=== PATIENT | female | born 1940 | race Caucasian/White ===

== ENCOUNTER 2017-07-02 08:20 | Inpatient (IN) | payer MEDICARE ==
[2017-07-02] MEDS ORDERED: NORMAL SALINE 1000 ML 1,000 ML IV ONE ×2 (08:29→10:33)
--- NOTE | 2017-07-02 08:49 | ER Document Report ---
ED Neuro Symptoms/Deficit - General Stated Complaint: WEAKNESS Time Seen by Provider: 07/02/17 08:28 Notes: 77-year-old female presents with change in mental status progressively over 1 week much worse in the last 24 hours. Daughter states that she has changed her normal routine over the last week not eating well with poor appetite as well as craving pettit sodas which is unusual for her. She has had progressive weakness to the point her daughter could not get her up and around today. She was having difficulty helping her get to the bathroom as soon as yesterday. EMS noted her blood sugar to be elevated. She has no history of diabetes but basically refuses to go to see any physicians. She is on lisinopril after being told that she did not take something for her blood pressure they would not do her cataract surgery. Patient is confused can give me no significant history. She states that basically "I was fine once and now on not". She cannot delineate further. She denies any pain. - Related Data Allergies/Adverse Reactions: codeine Allergy (Verified 07/02/17 17:30) Home Medications: Current Home Medications Lisinopril [Prinivil 10 mg Tablet] 10 mg PO DAILY 07/02/17 [History] Loratadine [Claritin 10 mg Tablet] 10 mg PO DAILY 07/02/17 [History] Past Medical History - Social History Smoking Status: Never Smoker Frequency of alcohol use: Heavy - "likes her Brinda" according to daughter Drug Abuse: None Family History: Reviewed & Not Pertinent Physical Exam - Notes Notes: GENERAL: VS as per nursing doc. Well-appearing, well-nourished and in no acute distress. HEAD: Atraumatic, normocephalic. EYES: Pupils equal round and reactive to light, extraocular movements intact, sclera anicteric, no conjunctival injection or discharge. ENT: Nares patent, oropharynx clear without exudates. Dry mucous membranes. NECK: Normal range of motion, supple, no carotid bruits. LUNGS: Breath sounds clear to auscultation bilaterally and equal. No wheezes rales or rhonchi. HEART: Normal S1S2. Regular rate and rhythm without murmurs. Equal peripheral pulses. ABDOMEN: Soft, non-tender. No appreciable mass. EXTREMITIES: Normal range of motion. No calf tenderness. Negative Homans. No edema. NEUROLOGICAL: GCS 15, twitching type movements of the right shoulder are noted, Cranial nerves II-XII intact. Normal visual yanez. 4/5 RUE strength, 5/5 RLE strength, 5/5 LUE strength, 5/5 LLE strength. PSYCH: Normal mood, normal affect. SKIN: Warm, Dry, no cyanosis, Cap refill < 2 sec. Course - Re-evaluation Re-evalutation: 07/02/17 11:04 Patient remains confused. Though there is probably a large hyperosmolar component, technically she does meet criteria for DKA. I discussed with Dr. Gutierrez and we will admit the patient to the intensive care unit. - Laboratory Result Diagrams: 07/04/17 05:19 07/05/17 10:10 - Diagnostic Test Radiology reviewed: Image reviewed, Reports reviewed - Chest x-ray: Nonacute CT of head: Chronic microvascular changes - EKG Interpretation by Me EKG shows normal: Sinus rhythm - Rate 103, sinus tachycardia, nonspecific ST abnormalities noted with rounding of the ST segments, QRS of normal duration Critical Care Note - Critical Care Note Total time excluding time spent on procedures (mins): 35 Discharge - Discharge Clinical Impression: DKA (diabetic ketoacidosis) Qualifiers: Diabetes mellitus type: type 2 Condition: Critical Disposition: ADMITTED INPATIENT Admitting Provider: [place] [facility] Admitted: ICU
--- NOTE | 2017-07-02 08:54 | RADIOLOGY REPORT (SQ) ---
EXAM DESCRIPTION: CT HEAD WITHOUT COMPLETED DATE/TIME: 07/02/2017 8:33 am REASON FOR STUDY: BED MP STROKE ALERT PER DR DUARTE COMPARISON: None. TECHNIQUE: Axial images acquired through the brain without intravenous contrast. Images reviewed wi th bone, brain and subdural windows. Images stored on PACS. All CT scanners at this facility use dose modulation, iterative reconstruction, and/or weight based d osing when appropriate to reduce radiation dose to as low as reasonably achievable (ALARA). [facility]: Dose Right [facility]: CareDose [facility]: Dose Right [facility]: Teradose 4D [facility]: [employer] RADIATION DOSE: Up-to-date CT equipment and radiation dose reduction techniques were employed. CTDIv ol: 64.6 mGy. DLP: 1163 mGy-cm. mGy. LIMITATIONS: None. FINDINGS: VENTRICLES: Prominent. CEREBRUM: No masses. No hemorrhage. No midline shift. Areas of low density in the white matter mos t likely due to chronic micro-vascular ischemic change. No evidence for acute infarction. CEREBELLUM: No masses. No hemorrhage. No alteration of density. No evidence for acute infarction. EXTRAAXIAL SPACES: Mild age-related involutional change. No fluid collections. No masses. ORBITS AND GLOBE: No intra- or extraconal masses. Normal contour of globe without masses. CALVARIUM: No fracture. PARANASAL SINUSES: No fluid or mucosal thickening. SOFT TISSUES: No mass or hematoma. OTHER: No other significant finding. IMPRESSION: MILD CHRONIC CHANGES OF ATROPHY AND MICROVASCULAR ISCHEMIA. NO ACUTE PROCESS. COMMENT: Pertinent positive or negative findings of the imaging study reported as a CRITICAL EXAM kunal WOODARD at08:43 on 07/02/2017. Category of Critical Exam: Stroke protocol. TECHNICAL DOCUMENTATION: JOB ID: [id number] Quality ID # [id number]: Final reports with documentation of one or more dose reduction techniques (e.g., Au tomated exposure control, adjustment of the mA and/or kV according to patient size, use of iterative reconstruction technique) 2010 [employer]- All Rights Reserved
--- NOTE | 2017-07-02 08:57 | RADIOLOGY REPORT (SQ) ---
EXAM DESCRIPTION: CHEST SINGLE VIEW COMPLETED DATE/TIME: 07/02/2017 8:34 am REASON FOR STUDY: CVA COMPARISON: None. EXAM PARAMETERS: NUMBER OF VIEWS: One view. TECHNIQUE: Single frontal radiographic view of the chest acquired. RADIATION DOSE: NA LIMITATIONS: None. FINDINGS: LUNGS AND PLEURA: No opacities, masses or pneumothorax. No pleural effusion. MEDIASTINUM AND HILAR STRUCTURES: No masses. Contour normal. HEART AND VASCULAR STRUCTURES: Heart normal in size. Normal vasculature. BONES: No acute findings. HARDWARE: None in the chest. OTHER: No other significant finding. IMPRESSION: NO ACUTE RADIOGRAPHIC FINDING IN THE CHEST. TECHNICAL DOCUMENTATION: JOB ID: [id number]
[2017-07-02 09:23] LABS: ABSOLUTE LYMPHOCYTES (AUTO) 0.7 10^3/uL (0.5-4.7); ABSOLUTE MONOCYTES (AUTO) 0.4 10^3/uL (0.1-1.4); ABSOLUTE NEUT (AUTO) 6.7 10^3/uL (1.7-8.2); BASOPHILS % (AUTO) 0.3 % (0-2); HEMATOCRIT 51.6 % (36.0-47.0); HGB HCT DIFFERENCE -3.6; LYMPHOCYTES % (AUTO) 8.8 % (13-45); MEAN CORPUSCULAR HEMOGLOBIN 35.8 pg (27.0-33.4); MONOCYTES % (AUTO) 5.4 % (3-13); RED BLOOD COUNT 4.46 10^6/uL (3.72-5.28); RED CELL DISTRIBUTION WIDTH 13.5 % (11.5-14.0); SEGMENTED NEUTROPHILS % (AUTO) 85.5 % (42-78); WHITE BLOOD COUNT 7.8 10^3/uL (4.0-10.5)
[2017-07-02 09:30] LABS: PROTHROMBIN TIME 13.8 SEC (11.4-15.4)
[2017-07-02 09:53] LABS: ALANINE AMINOTRANSFERASE 67 U/L (9-52); ALBUMIN 4.3 g/dL (3.5-5.0); ALKALINE PHOSPHATASE 111 U/L (38-126); ASPARTATE AMINO TRANSFERASE 41 U/L (14-36); BILIRUBIN,DIRECT 0.9 mg/dL (0.0-0.4); BILIRUBIN,TOTAL 1.1 mg/dL (0.2-1.3); BLOOD UREA NITROGEN 99 mg/dL (7-20); CALCIUM 9.8 mg/dL (8.4-10.2); CHLORIDE 92 mmol/L (98-107); CREATININE RESULT 2.03 mg/dL (0.52-1.25); POTASSIUM 5.8 mmol/L (3.6-5.0); TOTAL PROTEIN 7.5 g/dL (6.3-8.2)
[2017-07-02 09:56] LABS: PLATELET CLUMPS PRESENT; TOXIC GRANULATION SLIGHT
[2017-07-02 09:58] LABS: ALCOHOL < 10 mg/dL (NONE DETECTED)
[2017-07-02 09:58] LABS: APPEARANCE,URINE CLEAR; BILIRUBIN,URINE NEGATIVE (NEGATIVE); GLUCOSE, URINE >=500 mg/dL (NEGATIVE); KETONES,URINE TRACE mg/dL (NEGATIVE); LEUKOCYTE ESTERASE,URINE NEGATIVE (NEGATIVE); NITRITE,URINE NEGATIVE (NEGATIVE); PROTEIN,URINE NEGATIVE (NEGATIVE); URINE SPECIFIC GRAVITY 1.027; UROBILINOGEN,URINE NEGATIVE mg/dL (<2.0)
[2017-07-02 10:00] LABS: MEAN CORPUSCULAR VOLUME 116 fl (80-97); POIKILOCYTOSIS SLIGHT
[2017-07-02 10:05] LABS: CARBON DIOXIDE 15 mmol/L (22-30); SODIUM 135.1 mmol/L (137-145)
[2017-07-02 10:07] LABS: ANION GAP 28 (5-19)
[2017-07-02] MEDS ORDERED: INSULIN REG, HUMAN 100 UNIT/ML 3 ML VIAL (PYX) IV ONE ×2 (10:10→11:22)
[2017-07-02 10:52] LABS: GLUCOSE 1576 mg/dL (75-110)
[2017-07-02 10:54] LABS: ARTERIAL BLOOD O2 SATURATION 89.9 % (94-98)
[2017-07-02] MEDS ORDERED: NORMAL SALINE 1000 ML 1,000 ML IV PRN (11:33)
[2017-07-02] MEDS ORDERED: ACETAMINOPHEN 325 MG TABLET PO PRN (11:33)
[2017-07-02] MEDS ORDERED: INSULIN REG, HUMAN 100 UNIT/ML 3 ML VIAL (PYX) IV SCH (11:45)
[2017-07-02] MEDS ORDERED: HYDRALAZINE HCL INJ/PF 20 MG/1 ML SDV IV PRN (11:50)
[2017-07-02] MEDS ORDERED: NORMAL SALINE 1000 ML 1,000 ML with POTASSIUM CHLORIDE 20 MEQ, MAGNESIUM SULFATE 8 MEQ,... IV PRN ×5 (11:54)
--- NOTE | 2017-07-02 12:38 | PDOC H&P ---
History of Present Illness Admission Date/PCP: KG HAYES PA-C Patient complains of: Not feeling well. History of Present Illness: DILAN SANTANA is a 77 year old female who presents to hospital due to not feeling well. Pt is a poor historian. ER states that pt's daughter was present at time of ER physicians encounter who stated that pt has been more confused at home. Per documentation pt does not have history of diabetes. Per documentation pt is an alcoholic drink of choice is Brinda. Past Medical History Cardiac Medical History: Reports: Hypertension Psychiatric Medical History: Reports: Other - ETOH Dependency per daughter obtained from ER documentation Social History Information Source: [facility] Smoking Status: Never Smoker Family History Parental Family History Reviewed: No Children Family History Reviewed: NA Sibling(s) Family History Reviewed.: NA - due to patient's mental status Review of Systems ROS unobtainable: Due to mental status Physical Exam Vital Signs: Temp Pulse Resp BP Pulse Ox 984 F H 102 H 27 H 114/61 88 L 07/02/17 10:16 07/02/17 10:16 07/02/17 10:16 07/02/17 10:17 07/02/17 10:16 Intake & Output 07/01/17 07/02/17 07/03/17 06:59 06:59 06:59 Weight 100.2 kg General appearance: PRESENT: other - obese, awake but not able to follow commands, laying in bed. Head exam: PRESENT: atraumatic, normocephalic Eye exam: PRESENT: conjunctiva pink, EOMI. ABSENT: scleral icterus Ear exam: PRESENT: normal external ear exam Mouth exam: PRESENT: moist, tongue midline Neck exam: ABSENT: carotid bruit, JVD, lymphadenopathy, thyromegaly Respiratory exam: PRESENT: clear to auscultation bryant. ABSENT: rales, rhonchi, wheezes Cardiovascular exam: PRESENT: RRR. ABSENT: diastolic murmur, rubs, systolic murmur Pulses: PRESENT: normal dorsalis pedis pul Vascular exam: PRESENT: normal capillary refill GI/Abdominal exam: PRESENT: normal bowel sounds, soft. ABSENT: distended, guarding, mass, organolmegaly, rebound, tenderness Rectal exam: PRESENT: deferred Extremities exam: PRESENT: full ROM. ABSENT: calf tenderness, clubbing, pedal edema Neurological exam: PRESENT: awake, other - Pt oriented to self only. Psychiatric exam: PRESENT: anxious Skin exam: PRESENT: dry, intact, warm. ABSENT: cyanosis, rash Results Laboratory Results: 07/02/17 09:03 07/02/17 09:03 07/02/17 07/02/17 07/02/17 09:03 09:03 09:03 WBC 7.8 RBC 4.46 Hgb 16.0 H Hct 51.6 H MCV 116 H MCH 35.8 H MCHC 31.0 L RDW 13.5 Plt Count 143 L Seg Neutrophils % 85.5 H Lymphocytes % 8.8 L Monocytes % 5.4 Eosinophils % 0.0 Basophils % 0.3 Absolute Neutrophils 6.7 Absolute Lymphocytes 0.7 Absolute Monocytes 0.4 Absolute Eosinophils 0.0 Absolute Basophils 0.0 Carbonic Acid HCO3/H2CO3 Ratio ABG pH ABG pCO2 ABG pO2 ABG HCO3 ABG O2 Saturation ABG Base Excess FiO2 Sodium 135.1 L Potassium 5.8 H Chloride 92 L Carbon Dioxide 15 L Anion Gap 28 H BUN 99 H Creatinine 2.03 H Est GFR ( Amer) 29 L Est GFR (Non-Af Amer) 24 L Glucose 1576 H* Calcium 9.8 Total Bilirubin 1.1 AST 41 H ALT 67 H Alkaline Phosphatase 111 Ammonia < 8.7 L Total Protein 7.5 Albumin 4.3 Urine Color Urine Appearance Urine pH Ur Specific [place] Urine Protein Urine Glucose (UA) Urine Ketones Urine Blood Urine Nitrite Ur Leukocyte Esterase Urine WBC (Auto) Urine RBC (Auto) 07/02/17 07/02/17 09:13 10:40 WBC RBC Hgb Hct MCV MCH MCHC RDW Plt Count Seg Neutrophils % Lymphocytes % Monocytes % Eosinophils % Basophils % Absolute Neutrophils Absolute Lymphocytes Absolute Monocytes Absolute Eosinophils Absolute Basophils Carbonic Acid 1.30 HCO3/H2CO3 Ratio 13:1 ABG pH 7.24 L ABG pCO2 43.1 ABG pO2 66.6 L ABG HCO3 18.1 L ABG O2 Saturation 89.9 L ABG Base Excess -9.0 FiO2 3 LPM Sodium Potassium Chloride Carbon Dioxide Anion Gap BUN Creatinine Est GFR ( Amer) Est GFR (Non-Af Amer) Glucose Calcium Total Bilirubin AST ALT Alkaline Phosphatase Ammonia Total Protein Albumin Urine Color YELLOW Urine Appearance CLEAR Urine pH 5.0 Ur Specific [place] 1.027 Urine Protein NEGATIVE Urine Glucose (UA) >=500 H Urine Ketones TRACE H Urine Blood SMALL H Urine Nitrite NEGATIVE Ur Leukocyte Esterase NEGATIVE Urine WBC (Auto) 1 Urine RBC (Auto) 0 07/02/17 09:03 Troponin I 0.016 Impressions: Head CT 07/02/17 00:00 IMPRESSION: MILD CHRONIC CHANGES OF ATROPHY AND MICROVASCULAR ISCHEMIA. NO ACUTE PROCESS. Chest X-Ray 07/02/17 08:30 IMPRESSION: NO ACUTE RADIOGRAPHIC FINDING IN THE CHEST. Assessment & Plan - Diagnosis (1) Acute metabolic encephalopathy Is this a current diagnosis for this admission?: Yes Plan: Secondary to DKA/Hyperglycemia: Will continue to monitor. Will check TSH and Free T4 (2) Newly diagnosed diabetes Is this a current diagnosis for this admission?: Yes Plan: Will check HbgA1C. Will check Lipid profile. (3) DKA (diabetic ketoacidosis) Qualifiers: Diabetes mellitus type: type 2 Is this a current diagnosis for this admission?: Yes Plan: Will place on Insulin drip. (4) Acidosis due to secondary diabetes Is this a current diagnosis for this admission?: Yes Plan: Will continue IVFs. Will check BMP Q6 hours. (5) Acute renal injury due to hypovolemia Is this a current diagnosis for this admission?: Yes Plan: Will continue IVFs. Pt's baseline renal function unknown. (6) Dehydration Is this a current diagnosis for this admission?: Yes Plan: Will continue IVF. (7) ETOH abuse Is this a current diagnosis for this admission?: Yes Plan: Will write for PRN Ativan. (8) Hypertension Qualifiers: Hypertension type: unspecified Qualified Code(s): I10 - Essential (primary ) hypertension Is this a current diagnosis for this admission?: Yes Plan: Will write for PRN Hydralazine. (9) Hyponatremia Is this a current diagnosis for this admission?: Yes Plan: Secondary to Hyperglycemia: Will continue to monitor. (10) Obesity (BMI 35.0-39.9 without comorbidity) Is this a current diagnosis for this admission?: Yes Plan: Will discuss dietary changes. (11) DVT prophylaxis Is this a current diagnosis for this admission?: Yes Plan: Lovenox. - Time Time Spent: 30 to 50 Minutes
[2017-07-02 12:52] LABS: LIPASE 415.3 U/L (23-300)
[2017-07-02] MEDS ORDERED: ENOXAPARIN SODIUM INJ 30 MG/0.3 ML DISP.SYRIN SUBCUT ONE (13:00)
--- NOTE | 2017-07-02 13:13 | EKG REPORT ---
SEVERITY:- ABNORMAL ECG - SINUS TACHYCARDIA NONSPECIFIC REPOL ABNORMALITY, DIFFUSE LEADS : Confirmed by: Naveen Singh MD 02-Jul-2017 13:12:28
[2017-07-02] MEDS ORDERED: DEXTROSE 40% GEL 15 GM TUBE X 2 PO PRN (15:50)
[2017-07-02] MEDS ORDERED: INSULIN, REGULAR 100 UNIT/100 ML NORMAL SALINE IV PRN ×2 (15:50)
[2017-07-02] MEDS ORDERED: DEXTROSE 50%-WATER SYRINGE 12.5 GM/25 ML DOSE IV PRN (15:50)
[2017-07-02] MEDS ORDERED: DEXTROSE 50%-WATER SYRINGE 25 GM/50 ML DOSE IV PRN (15:50)
[2017-07-02] MEDS ORDERED: GLUCAGON,HUMAN RECOMB 1 MG INJ IM PRN (15:50)
[2017-07-02] MEDS ORDERED: DEXTROSE 40% GEL 15 GM TUBE PO PRN (15:50)
[2017-07-02 16:56] LABS: ANION GAP 17 (5-19); BLOOD UREA NITROGEN 94 mg/dL (7-20); CALCIUM 9.4 mg/dL (8.4-10.2); CARBON DIOXIDE 22 mmol/L (22-30); CHLORIDE 111 mmol/L (98-107); SODIUM 149.8 mmol/L (137-145)
[2017-07-02 17:09] LABS: POTASSIUM 4.1 mmol/L (3.6-5.0)
[2017-07-02 17:11] LABS: GLUCOSE 914 mg/dL (75-110)
--- NOTE | 2017-07-02 18:10 | XCELERA REPORT ---
[address] [address] Transthoracic Echocardiogram Report Name: DILAN SANTANA Age: 77 yrs Gender: Female : 1940 Patient Status: Inpatient Patient Location: ICU^[id number] Study Date: 07/02/2017 03:50 PM Height: 60 in Weight: 220 lb BSA: 1.9 m2 Procedure: A complete two-dimensional transthoracic echocardiogram was performed (2D, M-mode, spectral and color flow Doppler). The study was technically difficult with many images being suboptimal in quality. Reason For Study: Hypertension Ordering Physician: LUL SANTORO Performed By: Joseph Harrell Interpretation Summary Left ventricular systolic function is low normal. Doppler measurements suggest pseudonormalized left ventricular relaxation, which is associated with grade II/IV or mild to moderate diastolic dysfunction There is mild concentric left ventricular hypertrophy. The left ventricle is grossly normal size. Regional wall motion abnormalities cannot be excluded due to limited visualization. The right ventricle is mildly dilated. The right ventricular systolic function is normal. The left atrial size is normal. The right atrium is normal. There is no mitral valve stenosis. There is a mild amount of mitral regurgitation There is no aortic valve stenosis No aortic regurgitation is present. There is a trace to mild amount of tricuspid regurgitation There is mild pulmonary hypertension by echo Right ventricular systolic pressure is estimated to be elevated at 30- 40mmHg. The aortic root is not well visualized but is probably normal size. The inferior vena cava was not visualized There is no pericardial effusion. MMode/2D Measurements & Calculations RVDd: 2.7 cm LVIDd: 3.2 cm FS: 24.6 % Ao root diam: 2.9 cm IVSd: 1.4 cm LVIDs: 2.4 cm EDV(Teich): 41.3 ml LVPWd: 1.4 cm ESV(Teich): 20.6 ml Ao root area: 6.6 cm2 EF(Teich): 50.2 % LA dimension: 2.4 cm Doppler Measurements & Calculations MV E max alison: MV P1/2t max alison: Ao V2 max: LV V1 max P.8 cm/sec 55.2 cm/sec 108.6 cm/sec 2.7 mmHg MV A max alison: MV P1/2t: 41.5 msec Ao max PG: LV V1 max: 63.8 cm/sec 4.7 mmHg 81.8 cm/sec MV E/A: 0.83 MVA(P1/2t): 5.3 cm2 MV dec slope: 389.4 cm/sec2 PA V2 max: TR max alison: RAP systole: 75.0 cm/sec 239.0 cm/sec 10.0 mmHg PA max PG: TR max P.9 mmHg 2.3 mmHg RVSP(TR): 32.9 mmHg Left Ventricle The left ventricle is grossly normal size. There is mild concentric left ventricular hypertrophy. Left ventricular systolic function is low normal. Doppler measurements suggest pseudonormalized left ventricular relaxation, which is associated with grade II/IV or mild to moderate diastolic dysfunction. Regional wall motion abnormalities cannot be excluded due to limited visualization. Right Ventricle The right ventricle is mildly dilated. There is normal right ventricular wall thickness. The right ventricular systolic function is normal. Atria The right atrium is normal. The left atrial size is normal. Interarterial septum not well visualized and not well dopplered. Cannot comment on ASD/PFO presence. Mitral Valve There is mild mitral leaflet calcification. There is mild mitral annular calcification. There is no mitral valve stenosis. There is a mild amount of mitral regurgitation. Aortic Valve The aortic valve is mildly calcified. The aortic valve is trileaflet. There is no aortic valve stenosis. No aortic regurgitation is present. Tricuspid Valve The tricuspid valve is not well visualized, but is grossly normal. There is no tricuspid stenosis. There is a trace to mild amount of tricuspid regurgitation. There is mild pulmonary hypertension by echo. Right ventricular systolic pressure is estimated to be elevated at 30-40mmHg. Pulmonic Valve The pulmonic valve is not well visualized. Great Vessels The aortic root is not well visualized but is probably normal size. The inferior vena cava was not visualized. Effusions There is no pericardial effusion. : LUL SANTORO > Saad Camejo
[2017-07-02 19:03] LABS: APPEARANCE,URINE SLIGHTLY-CLOUDY; BILIRUBIN,URINE NEGATIVE (NEGATIVE); GLUCOSE, URINE >=500 mg/dL (NEGATIVE); KETONES,URINE NEGATIVE (NEGATIVE); LEUKOCYTE ESTERASE,URINE NEGATIVE (NEGATIVE); NITRITE,URINE NEGATIVE (NEGATIVE); PROTEIN,URINE NEGATIVE (NEGATIVE); URINE SPECIFIC GRAVITY 1.029; UROBILINOGEN,URINE NEGATIVE mg/dL (<2.0)
[2017-07-02] MEDS ORDERED: POTASSI CL 20 MEQ/1/2NS 1L 1000 ML IV PRN (22:19)
[2017-07-02] MEDS: POTASSI CL 20 MEQ/D5-1/2NS 1L 1000 ML IV PRN (22:38)
[2017-07-02 23:21] LABS: ANION GAP 12 (5-19); BLOOD UREA NITROGEN 95 mg/dL (7-20); CALCIUM 9.7 mg/dL (8.4-10.2); CARBON DIOXIDE 25 mmol/L (22-30); CHLORIDE 122 mmol/L (98-107); CREATININE RESULT 1.59 mg/dL (0.52-1.25); GLUCOSE 173 mg/dL (75-110); POTASSIUM 4.1 mmol/L (3.6-5.0)
[2017-07-03 00:27] LABS: APPEARANCE,URINE CLOUDY; BILIRUBIN,URINE NEGATIVE (NEGATIVE); GLUCOSE, URINE 150 mg/dL (NEGATIVE); KETONES,URINE NEGATIVE (NEGATIVE); LEUKOCYTE ESTERASE,URINE NEGATIVE (NEGATIVE); NITRITE,URINE NEGATIVE (NEGATIVE); PROTEIN,URINE 30 mg/dL (NEGATIVE); URINE SPECIFIC GRAVITY 1.028; UROBILINOGEN,URINE NEGATIVE mg/dL (<2.0)
[2017-07-03] MEDS: POTASSI CL 20 MEQ/D5-1/2NS 1L 1000 ML IV PRN (05:12)
[2017-07-03 05:36] LABS: ABSOLUTE BASOPHILS # (AUTO) 0.1 10^3/uL (0.0-0.2); ABSOLUTE LYMPHOCYTES (AUTO) 2.1 10^3/uL (0.5-4.7); ABSOLUTE MONOCYTES (AUTO) 1.1 10^3/uL (0.1-1.4); ABSOLUTE NEUT (AUTO) 8.7 10^3/uL (1.7-8.2); BASOPHILS % (AUTO) 0.5 % (0-2); EOSINOPHILS % (AUTO) 0.1 % (0-6); HEMATOCRIT 42.4 % (36.0-47.0); HEMOGLOBIN 14.7 g/dL (12.0-15.5); HGB HCT DIFFERENCE 1.7; LYMPHOCYTES % (AUTO) 17.2 % (13-45); MEAN CORPUSCULAR HEMOGLOBIN 35.3 pg (27.0-33.4); MEAN CORPUSCULAR HGB CONC 34.7 g/dL (32.0-36.0); MONOCYTES % (AUTO) 9.4 % (3-13); RED BLOOD COUNT 4.17 10^6/uL (3.72-5.28); RED CELL DISTRIBUTION WIDTH 12.1 % (11.5-14.0); SEGMENTED NEUTROPHILS % (AUTO) 72.8 % (42-78)
[2017-07-03 05:39] LABS: ALANINE AMINOTRANSFERASE 53 U/L (9-52); ALBUMIN 3.4 g/dL (3.5-5.0); ALKALINE PHOSPHATASE 80 U/L (38-126); ANION GAP 11 (5-19); ASPARTATE AMINO TRANSFERASE 32 U/L (14-36); BILIRUBIN,DIRECT 0.5 mg/dL (0.0-0.4); BILIRUBIN,TOTAL 0.5 mg/dL (0.2-1.3); BLOOD UREA NITROGEN 91 mg/dL (7-20); CALCIUM 9.2 mg/dL (8.4-10.2); CARBON DIOXIDE 23 mmol/L (22-30); CHLORIDE 125 mmol/L (98-107); CHOLESTEROL 310.11 mg/dL (0-200); CREATININE RESULT 1.47 mg/dL (0.52-1.25); Direct HDL 44 mg/dL (>40); GLUCOSE 141 mg/dL (75-110); MAGNESIUM 3.4 mg/dL (1.6-2.3); PHOSPHORUS 3.5 mg/dL (2.5-4.5); POTASSIUM 4.1 mmol/L (3.6-5.0); SODIUM 159.2 mmol/L (137-145); TOTAL PROTEIN 6.7 g/dL (6.3-8.2); TRIGLYCERIDES 273 mg/dL (<150)
[2017-07-03 05:49] LABS: DIRECT LDL 227 mg/dL (<100)
[2017-07-03 05:52] LABS: VLDL CHOLESTEROL 54.6 mg/dL (10-31)
[2017-07-03 06:08] LABS: THYROID STIMULATING HORMONE 0.62 uIU/mL (0.47-4.68)
[2017-07-03] MEDS: LANSOPRAZOLE 30 MG TAB.RAP.DR PO SCH (06:37)
[2017-07-03 06:42] LABS: AMORPHOUS SEDIMENT,URINE TRACE /HPF; APPEARANCE,URINE SLIGHTLY-CLOUDY; BILIRUBIN,URINE NEGATIVE (NEGATIVE); GLUCOSE, URINE NEGATIVE (NEGATIVE); KETONES,URINE NEGATIVE (NEGATIVE); LEUKOCYTE ESTERASE,URINE NEGATIVE (NEGATIVE); NITRITE,URINE NEGATIVE (NEGATIVE); PROTEIN,URINE 30 mg/dL (NEGATIVE); URINE SPECIFIC GRAVITY 1.026; UROBILINOGEN,URINE NEGATIVE mg/dL (<2.0)
[2017-07-03 06:45] LABS: MEAN CORPUSCULAR VOLUME 102 fl (80-97)
[2017-07-03] MEDS ORDERED: DEXTROSE 5%-WATER 1000 ML 1,000 ML IV PRN (09:46)
[2017-07-03] MEDS ORDERED: ENOXAPARIN SODIUM INJ 40 MG/0.4 ML DISP.SYRIN SUBCUT SCH (10:00)
[2017-07-03] MEDS: ENOXAPARIN SODIUM INJ 30 MG/0.3 ML DISP.SYRIN SUBCUT SCH (10:04)
--- NOTE | 2017-07-03 10:25 | PDOC PROGRESS REPORT ---
Physical Exam Vital Signs: Temp Pulse Resp BP Pulse Ox 98.1 F 98 20 134/73 H 97 07/03/17 07:50 07/03/17 07:50 07/03/17 07:50 07/03/17 07:50 07/03/17 07:50 Intake & Output 07/02/17 07/03/17 07/04/17 06:59 06:59 06:59 Intake Total 2778 Output Total 1565 20 Balance 1213 -20 Weight 91.7 kg Results Laboratory Results: 07/03/17 05:15 07/03/17 05:15 07/02/17 07/02/17 07/02/17 15:24 16:24 18:13 WBC RBC Hgb Hct MCV MCH MCHC RDW Plt Count Seg Neutrophils % Lymphocytes % Monocytes % Eosinophils % Basophils % Absolute Neutrophils Absolute Lymphocytes Absolute Monocytes Absolute Eosinophils Absolute Basophils Sodium Cancelled 149.8 H Potassium Cancelled 4.1 D Chloride Cancelled 111 H Carbon Dioxide Cancelled 22 Anion Gap Cancelled 17 BUN Cancelled 94 H Creatinine Cancelled 1.80 H Est GFR ( Amer) Cancelled 33 L Est GFR (Non-Af Amer) Cancelled 27 L Glucose Cancelled 914 H* 667 H* Calcium Cancelled 9.4 Phosphorus Magnesium Total Bilirubin AST ALT Alkaline Phosphatase Total Protein Albumin Triglycerides Cholesterol LDL Cholesterol Direct VLDL Cholesterol HDL Cholesterol TSH Free T4 Urine Color Urine Appearance Urine pH Ur Specific [place] Urine Protein Urine Glucose (UA) Urine Ketones Urine Blood Urine Nitrite Ur Leukocyte Esterase Urine WBC (Auto) Urine RBC (Auto) 07/02/17 07/02/17 07/02/17 18:39 22:50 23:55 WBC RBC Hgb Hct MCV MCH MCHC RDW Plt Count Seg Neutrophils % Lymphocytes % Monocytes % Eosinophils % Basophils % Absolute Neutrophils Absolute Lymphocytes Absolute Monocytes Absolute Eosinophils Absolute Basophils Sodium 159.0 H Potassium 4.1 Chloride 122 H Carbon Dioxide 25 Anion Gap 12 BUN 95 H Creatinine 1.59 H Est GFR ( Amer) 38 L Est GFR (Non-Af Amer) 32 L Glucose 173 H Calcium 9.7 Phosphorus Magnesium Total Bilirubin AST ALT Alkaline Phosphatase Total Protein Albumin Triglycerides Cholesterol LDL Cholesterol Direct VLDL Cholesterol HDL Cholesterol TSH Free T4 Urine Color YELLOW YELLOW Urine Appearance SLIGHTLY-CLOUDY CLOUDY Urine pH 5.0 5.0 Ur Specific [place] 1.029 1.028 Urine Protein NEGATIVE 30 H Urine Glucose (UA) >=500 H 150 H Urine Ketones NEGATIVE NEGATIVE Urine Blood MODERATE H LARGE H Urine Nitrite NEGATIVE NEGATIVE Ur Leukocyte Esterase NEGATIVE NEGATIVE Urine WBC (Auto) 2 11 Urine RBC (Auto) 7 45 07/03/17 07/03/17 07/03/17 05:15 05:15 05:15 WBC 12.0 H RBC 4.17 Hgb 14.7 Hct 42.4 MCV 102 H D MCH 35.3 H MCHC 34.7 RDW 12.1 Plt Count 128 L Seg Neutrophils % 72.8 Lymphocytes % 17.2 Monocytes % 9.4 Eosinophils % 0.1 Basophils % 0.5 Absolute Neutrophils 8.7 H Absolute Lymphocytes 2.1 Absolute Monocytes 1.1 Absolute Eosinophils 0.0 Absolute Basophils 0.1 Sodium 159.2 H Potassium 4.1 Chloride 125 H Carbon Dioxide 23 Anion Gap 11 BUN 91 H Creatinine 1.47 H Est GFR ( Amer) 42 L Est GFR (Non-Af Amer) 35 L Glucose 141 H Calcium 9.2 Phosphorus 3.5 Magnesium 3.4 H Total Bilirubin 0.5 AST 32 ALT 53 H Alkaline Phosphatase 80 Total Protein 6.7 Albumin 3.4 L Triglycerides 273 H Cholesterol 310.11 H LDL Cholesterol Direct 227 H VLDL Cholesterol 54.6 H HDL Cholesterol 44 TSH 0.62 Free T4 0.97 Urine Color Urine Appearance Urine pH Ur Specific [place] Urine Protein Urine Glucose (UA) Urine Ketones Urine Blood Urine Nitrite Ur Leukocyte Esterase Urine WBC (Auto) Urine RBC (Auto) 07/03/17 05:55 WBC RBC Hgb Hct MCV MCH MCHC RDW Plt Count Seg Neutrophils % Lymphocytes % Monocytes % Eosinophils % Basophils % Absolute Neutrophils Absolute Lymphocytes Absolute Monocytes Absolute Eosinophils Absolute Basophils Sodium Potassium Chloride Carbon Dioxide Anion Gap BUN Creatinine Est GFR ( Amer) Est GFR (Non-Af Amer) Glucose Calcium Phosphorus Magnesium Total Bilirubin AST ALT Alkaline Phosphatase Total Protein Albumin Triglycerides Cholesterol LDL Cholesterol Direct VLDL Cholesterol HDL Cholesterol TSH Free T4 Urine Color YELLOW Urine Appearance SLIGHTLY-CLOUDY Urine pH 5.0 Ur Specific [place] 1.026 Urine Protein 30 H Urine Glucose (UA) NEGATIVE Urine Ketones NEGATIVE Urine Blood MODERATE H Urine Nitrite NEGATIVE Ur Leukocyte Esterase NEGATIVE Urine WBC (Auto) 4 Urine RBC (Auto) 8 Impressions: Head CT 07/02/17 00:00 IMPRESSION: MILD CHRONIC CHANGES OF ATROPHY AND MICROVASCULAR ISCHEMIA. NO ACUTE PROCESS. Chest X-Ray 07/02/17 08:30 IMPRESSION: NO ACUTE RADIOGRAPHIC FINDING IN THE CHEST. Assessment & Plan - Diagnosis (1) Acute metabolic encephalopathy Is this a current diagnosis for this admission?: Yes Plan: Secondary to DKA/Hyperglycemia and Acute Hypernatremia: Will give D5W 1 liter and repeat sodium in 2 hours. Once D5W liter completed will restart D51/2 NS. (2) Acute hypernatremia Is this a current diagnosis for this admission?: Yes Plan: Secondary to DKA/Hyperglycemia: Will give 1 Liter of D5W. Will check BMP in 2 hours and restart D51/2NS (3) Newly diagnosed diabetes Is this a current diagnosis for this admission?: Yes Plan: Hemoglobin A1C 14. Will transition to SC insulin. (4) DKA (diabetic ketoacidosis) Qualifiers: Diabetes mellitus type: type 2 Is this a current diagnosis for this admission?: Yes Plan: Resolved. (5) Acidosis due to secondary diabetes Is this a current diagnosis for this admission?: Yes Plan: Resolved. (6) Acute renal injury due to hypovolemia Is this a current diagnosis for this admission?: Yes Plan: Resolving. Will continue to monitor. (7) Dehydration Is this a current diagnosis for this admission?: Yes Plan: Will continue IVF. (8) ETOH abuse Is this a current diagnosis for this admission?: Yes Plan: Ativan PRN (9) Hypertension Qualifiers: Hypertension type: unspecified Qualified Code(s): I10 - Essential (primary ) hypertension Is this a current diagnosis for this admission?: Yes Plan: Will continue to montior. (10) Hyponatremia Is this a current diagnosis for this admission?: Yes Plan: Resolved. (11) Obesity (BMI 35.0-39.9 without comorbidity) Is this a current diagnosis for this admission?: Yes Plan: Will discuss dietary changes. (12) DVT prophylaxis Is this a current diagnosis for this admission?: Yes Plan: Lovenox. - Time Time Spent with patient: 25-34 minutes
[2017-07-03] MEDS ORDERED: GLUCAGON,HUMAN RECOMB 1 MG INJ IM PRN (10:26)
[2017-07-03] MEDS ORDERED: DEXTROSE 40% GEL 15 GM TUBE PO PRN ×2 (10:26)
[2017-07-03] MEDS ORDERED: DEXTROSE 50%-WATER 25 GM/50 ML DISP.SYRIN IV PRN ×2 (10:26)
[2017-07-03 11:43] LABS: ANION GAP 10 (5-19); BLOOD UREA NITROGEN 85 mg/dL (7-20); CALCIUM 8.4 mg/dL (8.4-10.2); CARBON DIOXIDE 21 mmol/L (22-30); CHLORIDE 117 mmol/L (98-107); CREATININE RESULT 1.34 mg/dL (0.52-1.25); GLUCOSE 386 mg/dL (75-110); POTASSIUM 4.6 mmol/L (3.6-5.0); SODIUM 147.8 mmol/L (137-145)
[2017-07-03] MEDS ORDERED: INSULIN LISPRO 100 UNIT/ML 3 ML VIAL SUBCUT SCH (12:00)
[2017-07-03] MEDS: INSULIN LISPRO 100 UNIT/ML 3 ML VIAL SUBCUT PRN ×2 (12:09→14:02)
[2017-07-03 14:55] LABS: PATH REVIEW PATHOLOGIST REVIEWED
[2017-07-03] MEDS: INSULIN LISPRO 100 UNIT/ML 3 ML VIAL SUBCUT SCH (17:19)
[2017-07-03 17:35] LABS: ANION GAP 11 (5-19); BLOOD UREA NITROGEN 73 mg/dL (7-20); CALCIUM 8.5 mg/dL (8.4-10.2); CARBON DIOXIDE 24 mmol/L (22-30); CHLORIDE 114 mmol/L (98-107); CREATININE RESULT 1.19 mg/dL (0.52-1.25); GLUCOSE 233 mg/dL (75-110); POTASSIUM 3.9 mmol/L (3.6-5.0); SODIUM 149.4 mmol/L (137-145)
[2017-07-03] MEDS ORDERED: INSULIN GLARGINE,HUM.REC.ANLOG 300 UNIT/3 ML INSULN.PEN SUBCUT SCH ×2 (18:00)
[2017-07-03] MEDS: ATORVASTATIN CALCIUM 20 MG TABLET PO SCH (21:58)
[2017-07-04] MEDS: INSULIN LISPRO 100 UNIT/ML 3 ML VIAL SUBCUT PRN ×7 (02:11→23:08)
[2017-07-04] MEDS: LANSOPRAZOLE 30 MG TAB.RAP.DR PO SCH (05:01)
[2017-07-04 05:47] LABS: ABSOLUTE LYMPHOCYTES (AUTO) 2.2 10^3/uL (0.5-4.7); ABSOLUTE MONOCYTES (AUTO) 0.6 10^3/uL (0.1-1.4); EOSINOPHILS % (AUTO) 0.6 % (0-6); MONOCYTES % (AUTO) 7.4 % (3-13)
[2017-07-04 05:52] LABS: ABSOLUTE NEUT (AUTO) 5.8 10^3/uL (1.7-8.2); BASOPHILS % (AUTO) 0.5 % (0-2); HEMATOCRIT 42.7 % (36.0-47.0); HEMOGLOBIN 14.7 g/dL (12.0-15.5); HGB HCT DIFFERENCE 1.4; LYMPHOCYTES % (AUTO) 25.4 % (13-45); MEAN CORPUSCULAR HGB CONC 34.4 g/dL (32.0-36.0); MEAN CORPUSCULAR VOLUME 102 fl (80-97); RED BLOOD COUNT 4.19 10^6/uL (3.72-5.28); SEGMENTED NEUTROPHILS % (AUTO) 66.1 % (42-78); WHITE BLOOD COUNT 8.7 10^3/uL (4.0-10.5)
[2017-07-04 06:01] LABS: ALANINE AMINOTRANSFERASE 59 U/L (9-52); ALBUMIN 3.4 g/dL (3.5-5.0); ALKALINE PHOSPHATASE 87 U/L (38-126); ANION GAP 8 (5-19); ASPARTATE AMINO TRANSFERASE 64 U/L (14-36); BILIRUBIN,DIRECT 0.5 mg/dL (0.0-0.4); BILIRUBIN,TOTAL 1.1 mg/dL (0.2-1.3); CALCIUM 8.3 mg/dL (8.4-10.2); CARBON DIOXIDE 27 mmol/L (22-30); CHLORIDE 114 mmol/L (98-107); CREATININE RESULT 0.96 mg/dL (0.52-1.25); GLUCOSE 180 mg/dL (75-110); MAGNESIUM 2.7 mg/dL (1.6-2.3); PHOSPHORUS 2.6 mg/dL (2.5-4.5); POTASSIUM 3.7 mmol/L (3.6-5.0); SODIUM 149.1 mmol/L (137-145); TOTAL PROTEIN 6.7 g/dL (6.3-8.2)
[2017-07-04 06:31] LABS: BLOOD UREA NITROGEN 54 mg/dL (7-20)
[2017-07-04] MEDS: INSULIN LISPRO 100 UNIT/ML 3 ML VIAL SUBCUT SCH ×3 (08:00→16:43)
[2017-07-04] MEDS: ENOXAPARIN SODIUM INJ 30 MG/0.3 ML DISP.SYRIN SUBCUT SCH (10:00)
[2017-07-04] MEDS ORDERED: LORAZEPAM 1 MG TABLET PO PRN (10:11)
[2017-07-04] MEDS ORDERED: LORAZEPAM 1 MG TABLET ONE (10:17)
[2017-07-04] MEDS ORDERED: AMLODIPINE BESYLATE 10 MG TABLET PO ONE (11:00)
[2017-07-04] MEDS: LORAZEPAM INJ 2 MG/1 ML VIAL IV PRN ×2 (11:30→15:29)
--- NOTE | 2017-07-04 13:05 | PDOC PROGRESS REPORT ---
Subjective Progress Note for:: 07/04/17 Subjective:: Nursing states that pt has been very agitated today. Pt removed IV line and was verbally abusive with medical staff. During my encounter pt was difficult to evaluate. Pt did ask to have paulson removed. Physical Exam Vital Signs: Temp Pulse Resp BP Pulse Ox 98.4 F 82 19 154/87 H 97 07/04/17 07:36 07/04/17 11:29 07/04/17 11:29 07/04/17 11:29 07/04/17 11:29 Intake & Output 07/03/17 07/04/17 07/05/17 06:59 06:59 06:59 Intake Total 2778 2350 Output Total 1565 1285 Balance 1213 1065 Weight 91.7 kg 94.1 kg General appearance: PRESENT: disheveled, obese, well-developed, well-nourished Head exam: PRESENT: atraumatic, normocephalic Eye exam: PRESENT: conjunctiva pink, EOMI, PERRLA. ABSENT: scleral icterus Ear exam: PRESENT: normal external ear exam Mouth exam: PRESENT: moist, tongue midline Neck exam: ABSENT: carotid bruit, JVD, lymphadenopathy, thyromegaly Respiratory exam: PRESENT: clear to auscultation bryant. ABSENT: rales, rhonchi, wheezes Cardiovascular exam: PRESENT: RRR. ABSENT: diastolic murmur, rubs, systolic murmur Pulses: PRESENT: normal dorsalis pedis pul Vascular exam: PRESENT: normal capillary refill GI/Abdominal exam: PRESENT: normal bowel sounds, soft. ABSENT: distended, guarding, mass, organolmegaly, rebound, tenderness Rectal exam: PRESENT: deferred Extremities exam: PRESENT: full ROM. ABSENT: calf tenderness, clubbing, pedal edema Neurological exam: PRESENT: alert, awake, oriented to person, oriented to place , oriented to time, CN II-XII grossly intact Psychiatric exam: PRESENT: agitated, anxious Skin exam: PRESENT: dry, intact, warm. ABSENT: cyanosis, rash Results Laboratory Results: 07/04/17 05:19 07/04/17 09:25 07/03/17 07/03/17 07/03/17 15:28 17:01 20:55 WBC RBC Hgb Hct MCV MCH MCHC RDW Plt Count Seg Neutrophils % Lymphocytes % Monocytes % Eosinophils % Basophils % Absolute Neutrophils Absolute Lymphocytes Absolute Monocytes Absolute Eosinophils Absolute Basophils Sodium 146.2 H 149.4 H 148.7 H Potassium 3.9 Chloride 114 H Carbon Dioxide 24 Anion Gap 11 BUN 73 H Creatinine 1.19 Est GFR ( Amer) 53 L Est GFR (Non-Af Amer) 44 L Glucose 233 H Calcium 8.5 Phosphorus Magnesium Total Bilirubin AST ALT Alkaline Phosphatase Total Protein Albumin 07/04/17 07/04/17 07/04/17 01:02 05:19 05:19 WBC 8.7 RBC 4.19 Hgb 14.7 Hct 42.7 MCV 102 H MCH 35.0 H MCHC 34.4 RDW 12.0 Plt Count 97 L Seg Neutrophils % 66.1 Lymphocytes % 25.4 Monocytes % 7.4 Eosinophils % 0.6 Basophils % 0.5 Absolute Neutrophils 5.8 Absolute Lymphocytes 2.2 Absolute Monocytes 0.6 Absolute Eosinophils 0.0 Absolute Basophils 0.0 Sodium 147.1 H 149.1 H Potassium 3.7 Chloride 114 H Carbon Dioxide 27 Anion Gap 8 BUN 54 H Creatinine 0.96 Est GFR ( Amer) > 60 Est GFR (Non-Af Amer) 57 L Glucose 180 H Calcium 8.3 L Phosphorus 2.6 Magnesium 2.7 H Total Bilirubin 1.1 AST 64 H ALT 59 H Alkaline Phosphatase 87 Total Protein 6.7 Albumin 3.4 L 07/04/17 09:25 WBC RBC Hgb Hct MCV MCH MCHC RDW Plt Count Seg Neutrophils % Lymphocytes % Monocytes % Eosinophils % Basophils % Absolute Neutrophils Absolute Lymphocytes Absolute Monocytes Absolute Eosinophils Absolute Basophils Sodium 148.1 H Potassium Chloride Carbon Dioxide Anion Gap BUN Creatinine Est GFR ( Amer) Est GFR (Non-Af Amer) Glucose Calcium Phosphorus Magnesium Total Bilirubin AST ALT Alkaline Phosphatase Total Protein Albumin Impressions: Head CT 07/02/17 00:00 IMPRESSION: MILD CHRONIC CHANGES OF ATROPHY AND MICROVASCULAR ISCHEMIA. NO ACUTE PROCESS. Chest X-Ray 07/02/17 08:30 IMPRESSION: NO ACUTE RADIOGRAPHIC FINDING IN THE CHEST. Assessment & Plan - Diagnosis (1) Acute metabolic encephalopathy Is this a current diagnosis for this admission?: Yes Plan: Secondary to DKA/Hyperglycemia and Acute Hypernatremia: Resolving. (2) Acute hypernatremia Is this a current diagnosis for this admission?: Yes Plan: Secondary to DKA/Hyperglycemia: Improving. Pt removed IV site and is refusing to allow nursing to place new IV site. Have encouraged pt to drink more water. (3) Newly diagnosed diabetes Is this a current diagnosis for this admission?: Yes Plan: Hemoglobin A1C 14. Will increase Lantus to 50 units SQ at bedtime. Will continue Lispro 8 units with mealtime. Will continue SSI. (4) Psychosis Qualifiers: Schizoaffective disorder type: unspecified Is this a current diagnosis for this admission?: Yes Plan: Pt does have history of ETOH abuse however concerned for underlining mental illness. Will continue Mental Health for an evaluation. (5) DKA (diabetic ketoacidosis) Qualifiers: Diabetes mellitus type: type 2 Is this a current diagnosis for this admission?: Yes Plan: Resolved. (6) Acidosis due to secondary diabetes Is this a current diagnosis for this admission?: Yes Plan: Resolved. (7) Acute renal injury due to hypovolemia Is this a current diagnosis for this admission?: Yes Plan: Resolved. (8) Dehydration Is this a current diagnosis for this admission?: Yes Plan: Pt removed IV and is refusing new IV placement. Will encourage increased water intake. (9) ETOH abuse Is this a current diagnosis for this admission?: Yes Plan: Ativan PRN (10) Hypertension Qualifiers: Hypertension type: unspecified Qualified Code(s): I10 - Essential (primary ) hypertension Is this a current diagnosis for this admission?: Yes Plan: Will write for Norvasc. Will add Lisinopril tomorrow. (11) Hyponatremia Is this a current diagnosis for this admission?: Yes Plan: Pseudohyponatremia Secondary to Hyperglycemia: Resolved. (12) Obesity (BMI 35.0-39.9 without comorbidity) Is this a current diagnosis for this admission?: Yes Plan: Will discuss dietary changes. (13) DVT prophylaxis Is this a current diagnosis for this admission?: Yes Plan: Lovenox. - Time Time Spent with patient: 25-34 minutes
[2017-07-04] MEDS ORDERED: DEXTROSE 5%-WATER 1000 ML 1,000 ML IV ONE (16:34)
[2017-07-04] MEDS: INSULIN GLARGINE,HUM.REC.ANLOG 300 UNIT/3 ML INSULN.PEN SUBCUT SCH (17:30)
[2017-07-04] MEDS: ATORVASTATIN CALCIUM 20 MG TABLET PO SCH (21:48)
[2017-07-05] MEDS: LANSOPRAZOLE 30 MG TAB.RAP.DR PO SCH (06:52)
[2017-07-05] MEDS: ENOXAPARIN SODIUM INJ 30 MG/0.3 ML DISP.SYRIN SUBCUT SCH (10:36)
[2017-07-05] MEDS: AMLODIPINE BESYLATE 10 MG TABLET PO SCH (10:41)
[2017-07-05 10:43] LABS: ANION GAP 9 (5-19); BLOOD UREA NITROGEN 30 mg/dL (7-20); CARBON DIOXIDE 24 mmol/L (22-30); CHLORIDE 112 mmol/L (98-107); GLUCOSE 208 mg/dL (75-110); SODIUM 144.5 mmol/L (137-145)
[2017-07-05] MEDS: INSULIN LISPRO 100 UNIT/ML 3 ML VIAL SUBCUT PRN ×5 (11:43→22:16)
[2017-07-05] MEDS ORDERED: ACETAMINOPHEN 325 MG TABLET PO PRN (13:00)
[2017-07-05] MEDS ORDERED: LORAZEPAM 1 MG TABLET PO PRN ×2 (13:00→13:11)
[2017-07-05] MEDS ORDERED: HYDRALAZINE HCL INJ/PF 20 MG/1 ML SDV IV PRN (13:00)
[2017-07-05] MEDS ORDERED: LISINOPRIL 10 MG TABLET PO ONE (13:18)
--- NOTE | 2017-07-05 13:29 | PDOC PROGRESS REPORT ---
Subjective Progress Note for:: 07/05/17 Subjective:: Pt sleeping. Nursing states that pt was given ativan for agitation. Physical Exam Vital Signs: Temp Pulse Resp BP Pulse Ox 98.6 F 88 20 142/80 H 94 07/05/17 11:17 07/05/17 11:17 07/05/17 11:17 07/05/17 11:17 07/05/17 11:17 Intake & Output 07/04/17 07/05/17 07/06/17 06:59 06:59 06:59 Intake Total 2350 1230 Output Total 1285 300 Balance 1065 930 Weight 94.1 kg General appearance: PRESENT: well-developed, well-nourished, other - sleep Head exam: PRESENT: atraumatic, normocephalic Eye exam: PRESENT: conjunctiva pink, EOMI. ABSENT: scleral icterus Ear exam: PRESENT: normal external ear exam Mouth exam: PRESENT: moist, tongue midline Neck exam: ABSENT: carotid bruit, JVD, lymphadenopathy, thyromegaly Respiratory exam: PRESENT: clear to auscultation bryant. ABSENT: rales, rhonchi, wheezes Cardiovascular exam: PRESENT: RRR. ABSENT: diastolic murmur, rubs, systolic murmur Pulses: PRESENT: normal dorsalis pedis pul Vascular exam: PRESENT: normal capillary refill GI/Abdominal exam: PRESENT: normal bowel sounds, soft. ABSENT: distended, guarding, mass, organolmegaly, rebound, tenderness Rectal exam: PRESENT: deferred Extremities exam: PRESENT: full ROM. ABSENT: calf tenderness, clubbing, pedal edema Neurological exam: PRESENT: other - sleeping Psychiatric exam: PRESENT: appropriate affect, normal mood. ABSENT: homicidal ideation, suicidal ideation Skin exam: PRESENT: dry, intact, warm. ABSENT: cyanosis, rash Results Laboratory Results: 07/04/17 05:19 07/05/17 10:10 07/05/17 07/05/17 07:48 10:10 Sodium Cancelled 144.5 Potassium Cancelled 4.0 Chloride Cancelled 112 H Carbon Dioxide Cancelled 24 Anion Gap Cancelled 9 BUN Cancelled 30 H Creatinine Cancelled 0.70 Est GFR ( Amer) Cancelled > 60 Est GFR (Non-Af Amer) Cancelled > 60 Glucose Cancelled 208 H Calcium Cancelled 8.0 L Impressions: Head CT 07/02/17 00:00 IMPRESSION: MILD CHRONIC CHANGES OF ATROPHY AND MICROVASCULAR ISCHEMIA. NO ACUTE PROCESS. Chest X-Ray 07/02/17 08:30 IMPRESSION: NO ACUTE RADIOGRAPHIC FINDING IN THE CHEST. Assessment & Plan - Diagnosis (1) Acute metabolic encephalopathy Is this a current diagnosis for this admission?: Yes Plan: Secondary to DKA/Hyperglycemia and Acute Hypernatremia: Resolving. (2) Acute hypernatremia Is this a current diagnosis for this admission?: Yes Plan: Secondary to DKA/Hyperglycemia: Resolved. (3) Newly diagnosed diabetes Is this a current diagnosis for this admission?: Yes Plan: Hemoglobin A1C 14. Lantus to 50 units SQ at bedtime. Will continue Lispro 8 units with mealtime. Will continue SSI. (4) Psychosis Qualifiers: Schizoaffective disorder type: unspecified Is this a current diagnosis for this admission?: Yes Plan: Pt does have history of ETOH abuse however concerned for underlining mental illness. Will continue Mental Health for an evaluation. (5) DKA (diabetic ketoacidosis) Qualifiers: Diabetes mellitus type: type 2 Is this a current diagnosis for this admission?: Yes Plan: Resolved. (6) Acidosis due to secondary diabetes Is this a current diagnosis for this admission?: Yes Plan: Resolved. (7) Acute renal injury due to hypovolemia Is this a current diagnosis for this admission?: Yes Plan: Resolved. (8) Hypertension Qualifiers: Hypertension type: unspecified Qualified Code(s): I10 - Essential (primary ) hypertension Is this a current diagnosis for this admission?: Yes Plan: Will place pt on Lisinopril. Will continue Norvasc. (9) Dehydration Is this a current diagnosis for this admission?: Yes Plan: Removed (10) Hyponatremia Is this a current diagnosis for this admission?: Yes Plan: Pseudohyponatremia Secondary to Hyperglycemia: Resolved. (11) ETOH abuse Is this a current diagnosis for this admission?: Yes Plan: Ativan PRN (12) Obesity (BMI 35.0-39.9 without comorbidity) Is this a current diagnosis for this admission?: Yes Plan: Will discuss dietary changes. (13) DVT prophylaxis Is this a current diagnosis for this admission?: Yes Plan: Lovenox. - Time Time Spent with patient: 15-24 minutes
[2017-07-05] MEDS: INSULIN GLARGINE,HUM.REC.ANLOG 300 UNIT/3 ML INSULN.PEN SUBCUT SCH (18:03)
[2017-07-05] MEDS: ATORVASTATIN CALCIUM 20 MG TABLET PO SCH (21:46)
[2017-07-06] MEDS: LANSOPRAZOLE 30 MG TAB.RAP.DR PO SCH (05:12)
[2017-07-06 05:19] LABS: ANION GAP 11 (5-19); BLOOD UREA NITROGEN 33 mg/dL (7-20); CALCIUM 7.6 mg/dL (8.4-10.2); CARBON DIOXIDE 22 mmol/L (22-30); CHLORIDE 112 mmol/L (98-107); CREATININE RESULT 0.81 mg/dL (0.52-1.25); GLUCOSE 177 mg/dL (75-110); POTASSIUM 3.7 mmol/L (3.6-5.0); SODIUM 145.1 mmol/L (137-145)
[2017-07-06] MEDS: ENOXAPARIN SODIUM INJ 30 MG/0.3 ML DISP.SYRIN SUBCUT SCH (09:05)
[2017-07-06] MEDS: LISINOPRIL 10 MG TABLET PO SCH (09:08)
[2017-07-06] MEDS: AMLODIPINE BESYLATE 10 MG TABLET PO SCH (09:08)
[2017-07-06] MEDS: INSULIN LISPRO 100 UNIT/ML 3 ML VIAL SUBCUT PRN ×4 (10:40→17:41)
[2017-07-06] MEDS ORDERED: DEXTROSE 5%-WATER 1000 ML 500 ML IV ONE (15:25)
--- NOTE | 2017-07-06 15:25 | PDOC PROGRESS REPORT ---
Subjective Progress Note for:: 07/06/17 Subjective:: Pt states that she is doing well today. Daughter states that her mother is angry about being in the hospital because she does not like doctors, hospitals, or nurses. Daughter states that her mother is accusing her of not being present during her hospital stay. Daughter states that if her mother is not able to care for herself she will have to have assistance. Physical Exam Vital Signs: Temp Pulse Resp BP Pulse Ox 98.3 F 87 18 129/56 H 96 07/06/17 11:29 07/06/17 14:00 07/06/17 11:29 07/06/17 11:29 07/06/17 11:29 Intake & Output 07/05/17 07/06/17 07/07/17 06:59 06:59 06:59 Intake Total 1230 306 Output Total 300 Balance 930 306 Weight 91.3 kg General appearance: PRESENT: no acute distress, well-developed, well-nourished Head exam: PRESENT: atraumatic, normocephalic Eye exam: PRESENT: conjunctiva pink, EOMI. ABSENT: scleral icterus Ear exam: PRESENT: normal external ear exam Mouth exam: PRESENT: moist, tongue midline Neck exam: ABSENT: carotid bruit, JVD, lymphadenopathy, thyromegaly Respiratory exam: PRESENT: clear to auscultation bryant. ABSENT: rales, rhonchi, wheezes Cardiovascular exam: PRESENT: RRR. ABSENT: diastolic murmur, rubs, systolic murmur Pulses: PRESENT: normal dorsalis pedis pul Vascular exam: PRESENT: normal capillary refill GI/Abdominal exam: PRESENT: normal bowel sounds, soft. ABSENT: distended, guarding, mass, organolmegaly, rebound, tenderness Rectal exam: PRESENT: deferred Extremities exam: PRESENT: full ROM. ABSENT: calf tenderness, clubbing, pedal edema Neurological exam: PRESENT: alert, awake, oriented to person, oriented to place , oriented to time, CN II-XII grossly intact Psychiatric exam: PRESENT: flat affect Skin exam: PRESENT: dry, intact, warm. ABSENT: cyanosis, rash Results Laboratory Results: 07/04/17 05:19 07/06/17 04:14 07/06/17 04:14 Sodium 145.1 H Potassium 3.7 Chloride 112 H Carbon Dioxide 22 Anion Gap 11 BUN 33 H Creatinine 0.81 Est GFR ( Amer) > 60 Est GFR (Non-Af Amer) > 60 Glucose 177 H Calcium 7.6 L Impressions: Head CT 07/02/17 00:00 IMPRESSION: MILD CHRONIC CHANGES OF ATROPHY AND MICROVASCULAR ISCHEMIA. NO ACUTE PROCESS. Chest X-Ray 07/02/17 08:30 IMPRESSION: NO ACUTE RADIOGRAPHIC FINDING IN THE CHEST. Assessment & Plan - Diagnosis (1) Acute metabolic encephalopathy Is this a current diagnosis for this admission?: Yes Plan: Secondary to DKA/Hyperglycemia and Acute Hypernatremia: Resolved. (2) Acute hypernatremia Is this a current diagnosis for this admission?: Yes Plan: Secondary to DKA/Hyperglycemia: Resolved. (3) Newly diagnosed diabetes Is this a current diagnosis for this admission?: Yes Plan: Hemoglobin A1C 14. Will increase Lantus to 60 units SQ at bedtime. Will Lispro 5 units with mealtime. Will continue SSI. (4) Psychosis Qualifiers: Schizoaffective disorder type: unspecified Is this a current diagnosis for this admission?: Yes Plan: Pt does have history of ETOH abuse however concerned for underlining mental illness. Will continue Mental Health for an evaluation. (5) DKA (diabetic ketoacidosis) Qualifiers: Diabetes mellitus type: type 2 Is this a current diagnosis for this admission?: Yes Plan: Resolved. (6) Acidosis due to secondary diabetes Is this a current diagnosis for this admission?: Yes Plan: Resolved. (7) Acute renal injury due to hypovolemia Is this a current diagnosis for this admission?: Yes Plan: Resolved. (8) Hypertension Qualifiers: Hypertension type: unspecified Qualified Code(s): I10 - Essential (primary ) hypertension Is this a current diagnosis for this admission?: Yes Plan: Will continue Norvasc and Lisinopril. (9) Dehydration Is this a current diagnosis for this admission?: Yes Plan: Removed (10) Hyponatremia Is this a current diagnosis for this admission?: Yes Plan: Pseudohyponatremia Secondary to Hyperglycemia: Resolved. (11) ETOH abuse Is this a current diagnosis for this admission?: Yes Plan: Ativan PRN (12) Obesity (BMI 35.0-39.9 without comorbidity) Is this a current diagnosis for this admission?: Yes Plan: Will discuss dietary changes. (13) DVT prophylaxis Is this a current diagnosis for this admission?: Yes Plan: Lovenox. - Time Time Spent with patient: 15-24 minutes
[2017-07-06] MEDS ORDERED: INSULIN LISPRO 100 UNIT/ML 3 ML VIAL SUBCUT SCH (17:00)
[2017-07-06] MEDS: INSULIN GLARGINE,HUM.REC.ANLOG 300 UNIT/3 ML INSULN.PEN SUBCUT SCH (17:41)
[2017-07-06] MEDS ORDERED: INSULIN LISPRO 100 UNIT/ML 3 ML VIAL SUBCUT PRN (19:21)
[2017-07-06] MEDS ORDERED: ACETAMINOPHEN 325 MG TABLET PO PRN (19:30)
[2017-07-06] MEDS: ATORVASTATIN CALCIUM 20 MG TABLET PO SCH (21:14)
[2017-07-07] MEDS: INSULIN LISPRO 100 UNIT/ML 3 ML VIAL SUBCUT PRN ×4 (01:04→22:56)
[2017-07-07] MEDS: LANSOPRAZOLE 30 MG TAB.RAP.DR PO SCH (05:18)
--- NOTE | 2017-07-07 07:48 | PSYCHOLOGICAL NOTE ---
Psych Note - Psych Note Psych Note: DILAN SANTANA is a 77 year old female who presents to hospital due to not feeling well. Pt is a poor historian. ER states that pt's daughter was present at time of ER physicians encounter who stated that pt has been more confused at home. Per documentation pt does not have history of diabetes. Per documentation pt is an alcoholic drink of choice is Brinda. Psychiatric evaluation requested for concerns of possible mental health issues. Clinician attempted evaluation: Patient responds to her name and is able to identify her birthday and "1940" Patient is either unable to unwilling to continue evaluation responding "I don't know" to further questions. Patient was observed prior to entering room. She was sitting on the recliner with her eyes closed. Patient can be heard at the nurses station grunting, overly loud sigh, or moaning with every exhale. Patient will be re-evaluated
--- NOTE | 2017-07-07 08:24 | PSYCHOLOGICAL NOTE ---
Psych Note - Psych Note Psych Note: DILAN SANTANA is a 77 year old female who presents to hospital due to not feeling well. Pt is a poor historian. ER states that pt's daughter was present at time of ER physicians encounter who stated that pt has been more confused at home. Per documentation pt does not have history of diabetes. Per documentation pt is an alcoholic drink of choice is Brinda. Psychiatric evaluation requested for concerns of possible mental health issues. Evaluation: Patient minimally engaged with clinician; however, it appears she is back to a cognitive baseline. Patient is orientated and is able to correctly identify birthday, the month and year, and her current location. Patient denies any mental health history or treatment. When asked if the patient would be interested in substance abuse treatment she stated "I thank you." Patient is noted to have mild chronic changes of atrophy and microvascular ischemia in her Head CT 07/02/2017 Patient is alert and orientated to person, place, time and circumstance. Mood is euthymic with congruent affect. Patient denies suicidal and homicidal ideation. Patient denies auditory and visual hallucinations. Delusions are absent and behaviour is congruent with an intact reality based presentation ( i.e organized, linear, thinking). Eye contact was poor, conversational speech was soft but understandable. It is noted patient is no longer moaning or grunting as previously observed. Intellectual abilities appear to be average range. Attention and concentration are fair. Insight, judgment and impulse control appear to be poor due to substance abuse (alcohol). alcohol abuse per history 293.0 (F05) Delirium due to multiple etiologies: 291.0 (F10.231) Alcohol withdrawal delirium, multiple medical conditions ( i.e. DKA, acute metabolic encephalopathy) R/O neurocognitive disorder Impression/Plan: At this time the patient appears to be at baseline for cognitive functioning; she is orientated to person, place time and circumstance. It is noted the patient came into [facility] DKA and she stated she has never been treated or diagnosed as diabetic. With the patient's medical stabilization it appears the patient's cognitive difficulties have resolved. Patient denies mental health history and declined assistance for her reported alcoholism. Patient was calm and answered questions appropriately and behaviour indicated an intact reality based presentation (i.e. organized, linear thought processes). Patient does not meet IVC criteria per [place] GS 122C. If patient's presentation or behaviours indicate a possible mental health change please contact the behavioral health team for a re-evaluation. At this time, the patient is considered psychiatrically cleared.
[2017-07-07 08:34] LABS: ANION GAP 8 (5-19); BLOOD UREA NITROGEN 37 mg/dL (7-20); CALCIUM 7.9 mg/dL (8.4-10.2); CARBON DIOXIDE 26 mmol/L (22-30); CHLORIDE 107 mmol/L (98-107); CREATININE RESULT 0.84 mg/dL (0.52-1.25); GLUCOSE 87 mg/dL (75-110); POTASSIUM 3.7 mmol/L (3.6-5.0); SODIUM 141.3 mmol/L (137-145)
[2017-07-07] MEDS: LISINOPRIL 10 MG TABLET PO SCH (09:32)
[2017-07-07] MEDS: AMLODIPINE BESYLATE 10 MG TABLET PO SCH (09:32)
--- NOTE | 2017-07-07 14:02 | PDOC PROGRESS REPORT ---
Subjective Progress Note for:: 07/07/17 Subjective:: Pt states that she is doing better. Pt states that she needs to work with PT/ OT prior to going home. Nursing states that pt has taken medication. Physical Exam Vital Signs: Temp Pulse Resp BP Pulse Ox 99.0 F 84 18 127/77 H 96 07/07/17 07:16 07/07/17 07:16 07/07/17 07:16 07/07/17 07:16 07/07/17 07:16 Intake & Output 07/06/17 07/07/17 07/08/17 06:59 06:59 06:59 Intake Total 306 1661 Balance 306 1661 Weight 91.3 kg 93.9 kg General appearance: PRESENT: no acute distress, well-developed, well-nourished Head exam: PRESENT: atraumatic, normocephalic Eye exam: PRESENT: conjunctiva pink, EOMI. ABSENT: scleral icterus Ear exam: PRESENT: normal external ear exam Mouth exam: PRESENT: moist, tongue midline Neck exam: ABSENT: carotid bruit, JVD, lymphadenopathy, thyromegaly Respiratory exam: PRESENT: clear to auscultation bryant. ABSENT: rales, rhonchi, wheezes Cardiovascular exam: PRESENT: RRR. ABSENT: diastolic murmur, rubs, systolic murmur Pulses: PRESENT: normal dorsalis pedis pul Vascular exam: PRESENT: normal capillary refill GI/Abdominal exam: PRESENT: normal bowel sounds, soft. ABSENT: distended, guarding, mass, organolmegaly, rebound, tenderness Rectal exam: PRESENT: deferred Extremities exam: PRESENT: full ROM. ABSENT: calf tenderness, clubbing, pedal edema Neurological exam: PRESENT: alert, awake, oriented to person, oriented to place , oriented to time, oriented to situation, CN II-XII grossly intact. ABSENT: motor sensory deficit Psychiatric exam: PRESENT: appropriate affect, normal mood. ABSENT: homicidal ideation, suicidal ideation Skin exam: PRESENT: dry, intact, warm. ABSENT: cyanosis, rash Results Laboratory Results: 07/04/17 05:19 07/07/17 07:38 07/07/17 07:38 Sodium 141.3 Potassium 3.7 Chloride 107 Carbon Dioxide 26 Anion Gap 8 BUN 37 H Creatinine 0.84 Est GFR ( Amer) > 60 Est GFR (Non-Af Amer) > 60 Glucose 87 Calcium 7.9 L 07/02/17 12:35 Blood Blood Culture - Final NO GROWTH IN 5 DAYS Impressions: Head CT 07/02/17 00:00 IMPRESSION: MILD CHRONIC CHANGES OF ATROPHY AND MICROVASCULAR ISCHEMIA. NO ACUTE PROCESS. Chest X-Ray 07/02/17 08:30 IMPRESSION: NO ACUTE RADIOGRAPHIC FINDING IN THE CHEST. Assessment & Plan - Diagnosis (1) Acute metabolic encephalopathy Is this a current diagnosis for this admission?: Yes Plan: Secondary to DKA/Hyperglycemia and Acute Hypernatremia: Resolved. (2) Acute hypernatremia Is this a current diagnosis for this admission?: Yes Plan: Secondary to DKA/Hyperglycemia: Resolved. (3) Newly diagnosed diabetes Is this a current diagnosis for this admission?: Yes Plan: Hemoglobin A1C 14. Will continue Lantus to 60 units SQ at bedtime. Will continue Lispro 5 units with mealtime. Will continue SSI. (4) Psychosis Qualifiers: Schizoaffective disorder type: unspecified Is this a current diagnosis for this admission?: Yes Plan: Pt does have history of ETOH abuse however concerned for underlining mental illness. Will continue Mental Health for an evaluation. (5) DKA (diabetic ketoacidosis) Qualifiers: Diabetes mellitus type: type 2 Is this a current diagnosis for this admission?: Yes Plan: Resolved. (6) Acidosis due to secondary diabetes Is this a current diagnosis for this admission?: Yes Plan: Resolved. (7) Acute renal injury due to hypovolemia Is this a current diagnosis for this admission?: Yes Plan: Resolved. (8) Hypertension Qualifiers: Hypertension type: unspecified Qualified Code(s): I10 - Essential (primary ) hypertension Is this a current diagnosis for this admission?: Yes Plan: Will continue Norvasc and Lisinopril. (9) Dehydration Is this a current diagnosis for this admission?: Yes Plan: Removed (10) Hyponatremia Is this a current diagnosis for this admission?: Yes Plan: Pseudohyponatremia Secondary to Hyperglycemia: Resolved. (11) ETOH abuse Is this a current diagnosis for this admission?: Yes Plan: Ativan PRN (12) Obesity (BMI 35.0-39.9 without comorbidity) Is this a current diagnosis for this admission?: Yes Plan: Dietary changes. (13) DVT prophylaxis Is this a current diagnosis for this admission?: Yes Plan: Lovenox. - Time Time Spent with patient: 15-24 minutes
[2017-07-07] MEDS: INSULIN LISPRO 100 UNIT/ML 3 ML VIAL SUBCUT SCH ×2 (18:09→22:55)
[2017-07-07] MEDS: INSULIN GLARGINE,HUM.REC.ANLOG 300 UNIT/3 ML INSULN.PEN SUBCUT SCH (18:11)
[2017-07-07] MEDS: ATORVASTATIN CALCIUM 20 MG TABLET PO SCH (21:54)
[2017-07-08 05:39] LABS: ANION GAP 8 (5-19); BLOOD UREA NITROGEN 29 mg/dL (7-20); CALCIUM 7.9 mg/dL (8.4-10.2); CARBON DIOXIDE 24 mmol/L (22-30); CHLORIDE 111 mmol/L (98-107); CREATININE RESULT 0.64 mg/dL (0.52-1.25); GLUCOSE 60 mg/dL (75-110); POTASSIUM 3.4 mmol/L (3.6-5.0); SODIUM 143.2 mmol/L (137-145)
[2017-07-08] MEDS: LANSOPRAZOLE 30 MG TAB.RAP.DR PO SCH (06:11)
[2017-07-08] MEDS: AMLODIPINE BESYLATE 10 MG TABLET PO SCH (09:26)
[2017-07-08] MEDS: INSULIN LISPRO 100 UNIT/ML 3 ML VIAL SUBCUT SCH ×4 (09:27→22:00)
[2017-07-08] MEDS: LISINOPRIL 10 MG TABLET PO SCH (09:28)
[2017-07-08] MEDS: INSULIN LISPRO 100 UNIT/ML 3 ML VIAL SUBCUT PRN (12:27)
--- NOTE | 2017-07-08 16:31 | PDOC PROGRESS REPORT ---
Subjective Progress Note for:: 07/08/17 Subjective:: She states that she is doing better with walking however she reports she is still weak. Patient also reports that this is not her baseline. Patient states that she is waiting to speak to her daughter about rehab. Physical Exam Vital Signs: Temp Pulse Resp BP Pulse Ox 97.6 F 74 24 H 128/67 H 98 07/08/17 00:41 07/08/17 14:00 07/08/17 00:41 07/08/17 00:41 07/08/17 00:41 Intake & Output 07/07/17 07/08/17 07/09/17 06:59 06:59 06:59 Intake Total 1661 990 Balance 1661 990 Weight 93.9 kg General appearance: PRESENT: no acute distress, well-developed, well-nourished Head exam: PRESENT: atraumatic, normocephalic Eye exam: PRESENT: conjunctiva pink, EOMI, PERRLA. ABSENT: scleral icterus Ear exam: PRESENT: normal external ear exam Mouth exam: PRESENT: moist, tongue midline Neck exam: ABSENT: carotid bruit, JVD, lymphadenopathy, thyromegaly Respiratory exam: PRESENT: clear to auscultation bryant. ABSENT: rales, rhonchi, wheezes Cardiovascular exam: PRESENT: RRR. ABSENT: diastolic murmur, rubs, systolic murmur Pulses: PRESENT: normal dorsalis pedis pul Vascular exam: PRESENT: normal capillary refill GI/Abdominal exam: PRESENT: normal bowel sounds, soft. ABSENT: distended, guarding, mass, organolmegaly, rebound, tenderness Rectal exam: PRESENT: deferred Extremities exam: PRESENT: full ROM. ABSENT: calf tenderness, clubbing, pedal edema Neurological exam: PRESENT: alert, awake, oriented to person, oriented to place , oriented to time, oriented to situation, CN II-XII grossly intact. ABSENT: motor sensory deficit Psychiatric exam: PRESENT: appropriate affect, normal mood. ABSENT: homicidal ideation, suicidal ideation Skin exam: PRESENT: dry, intact, warm. ABSENT: cyanosis, rash Results Laboratory Results: 07/04/17 05:19 07/08/17 04:57 07/08/17 04:57 Sodium 143.2 Potassium 3.4 L Chloride 111 H Carbon Dioxide 24 Anion Gap 8 BUN 29 H Creatinine 0.64 Est GFR ( Amer) > 60 Est GFR (Non-Af Amer) > 60 Glucose 60 L Calcium 7.9 L 07/02/17 12:35 Blood Blood Culture - Final NO GROWTH IN 5 DAYS Impressions: Head CT 07/02/17 00:00 IMPRESSION: MILD CHRONIC CHANGES OF ATROPHY AND MICROVASCULAR ISCHEMIA. NO ACUTE PROCESS. Chest X-Ray 07/02/17 08:30 IMPRESSION: NO ACUTE RADIOGRAPHIC FINDING IN THE CHEST. Assessment & Plan - Diagnosis (1) Acute metabolic encephalopathy Is this a current diagnosis for this admission?: Yes Plan: Secondary to DKA/Hyperglycemia and Acute Hypernatremia: Resolved. (2) Acute hypernatremia Is this a current diagnosis for this admission?: Yes Plan: Secondary to DKA/Hyperglycemia: Resolved. (3) Newly diagnosed diabetes Is this a current diagnosis for this admission?: Yes Plan: Hemoglobin A1C 14. Will decrease Lantus to 55 units SQ at bedtime. Will continue Lispro 5 units with mealtime. Will continue SSI. (4) Psychosis Qualifiers: Schizoaffective disorder type: unspecified Is this a current diagnosis for this admission?: Yes Plan: Neurocognitive Impairment: Supportive care. (5) DKA (diabetic ketoacidosis) Qualifiers: Diabetes mellitus type: type 2 Is this a current diagnosis for this admission?: Yes Plan: Resolved. (6) Acidosis due to secondary diabetes Is this a current diagnosis for this admission?: Yes Plan: Resolved. (7) Acute renal injury due to hypovolemia Is this a current diagnosis for this admission?: Yes Plan: Resolved. (8) Hypertension Qualifiers: Hypertension type: unspecified Qualified Code(s): I10 - Essential (primary ) hypertension Is this a current diagnosis for this admission?: Yes Plan: Will continue Norvasc and Lisinopril. (9) Dehydration Is this a current diagnosis for this admission?: Yes Plan: Removed (10) Hyponatremia Is this a current diagnosis for this admission?: Yes Plan: Pseudohyponatremia Secondary to Hyperglycemia: Resolved. (11) ETOH abuse Is this a current diagnosis for this admission?: Yes Plan: Ativan PRN. (12) Obesity (BMI 35.0-39.9 without comorbidity) Is this a current diagnosis for this admission?: Yes Plan: Dietary changes. (13) DVT prophylaxis Is this a current diagnosis for this admission?: Yes Plan: Lovenox. - Time Time Spent with patient: 15-24 minutes
[2017-07-08] MEDS: ATORVASTATIN CALCIUM 20 MG TABLET PO SCH (22:00)
[2017-07-08] MEDS ORDERED: INSULIN GLARGINE,HUM.REC.ANLOG 300 UNIT/3 ML INSULN.PEN SUBCUT SCH (22:00)
[2017-07-09] MEDS: LANSOPRAZOLE 30 MG TAB.RAP.DR PO SCH (05:10)
[2017-07-09 06:05] LABS: ANION GAP 9 (5-19); BLOOD UREA NITROGEN 21 mg/dL (7-20); CALCIUM 8.5 mg/dL (8.4-10.2); CARBON DIOXIDE 25 mmol/L (22-30); CHLORIDE 110 mmol/L (98-107); CREATININE RESULT 0.72 mg/dL (0.52-1.25); GLUCOSE 94 mg/dL (75-110); SODIUM 143.9 mmol/L (137-145)
[2017-07-09] MEDS: INSULIN LISPRO 100 UNIT/ML 3 ML VIAL SUBCUT SCH ×2 (08:40→12:31)
[2017-07-09] MEDS: AMLODIPINE BESYLATE 10 MG TABLET PO SCH (09:28)
[2017-07-09] MEDS: LISINOPRIL 10 MG TABLET PO SCH (09:29)
[2017-07-09 11:33] VITALS: BP 135/73
--- NOTE | 2017-07-09 11:40 | PDOC DISCHARGE SUMMARY ---
General - Admit/Disc Date/PCP Admission Date/Primary Care Provider: 07/08/17 17:26 KG HAYES PA-C Discharge Date: 07/09/17 - Discharge Diagnosis (1) Acute metabolic encephalopathy Is this a current diagnosis for this admission?: Yes Summary: Secondary to DKA/hyperglycemia, EtOH withdrawal, and acute hypernatremia: Resolved (2) Acute hypernatremia Is this a current diagnosis for this admission?: Yes Summary: Resolved (3) Newly diagnosed diabetes Is this a current diagnosis for this admission?: Yes Summary: Patient's hemoglobin A1c greater than 14 patient was placed on insulin drip and once DKA had resolved and blood sugars were better controlled patient was switched to subcu insulin. Patient is being discharged home on insulin. (4) Psychosis Is this a current diagnosis for this admission?: Yes Summary: Secondary to EtOH withdrawal and neurocognitive impairment: Patient was seen by mental health who stated that patient demonstrated evidence consistent with neurocognitive impairment which was complicated by patient's EtOH withdrawal. (5) DKA (diabetic ketoacidosis) Is this a current diagnosis for this admission?: Yes Summary: Resolved. Patient currently on scheduled insulin. (6) Acidosis due to secondary diabetes Is this a current diagnosis for this admission?: Yes Summary: Secondary to DKA: Resolved (7) Acute renal injury due to hypovolemia Is this a current diagnosis for this admission?: Yes Summary: Secondary to dehydration: Resolved (8) Hypertension Is this a current diagnosis for this admission?: Yes Summary: Patient will continue lisinopril and Norvasc. (9) Dehydration Is this a current diagnosis for this admission?: Yes Summary: She was given IV fluids for volume expansion. Dehydration resolved (10) Hyponatremia Is this a current diagnosis for this admission?: Yes Summary: Secondary to pseudohyponatremia: Resolved (11) ETOH abuse Is this a current diagnosis for this admission?: Yes Summary: Encourage patient to stop drinking. (12) Obesity (BMI 35.0-39.9 without comorbidity) Is this a current diagnosis for this admission?: Yes Summary: Encourage dietary changes (13) Withdrawal complaint Is this a current diagnosis for this admission?: Yes Summary: EtOH withdrawal: Resolved - Additional Information Resuscitation Status: Full Code Discharge Diet: Cardiac, Diabetic Discharge Activity: Activity As Tolerated Home Medications: Lisinopril [Prinivil 10 mg Tablet] 10 mg PO DAILY 07/02/17 Loratadine [Claritin 10 mg Tablet] 10 mg PO DAILY 07/02/17 Amlodipine Besylate [Norvasc 10 mg Tablet] 10 mg PO DAILY #30 tablet 07/09/17 Atorvastatin Calcium [Lipitor 20 mg Tablet] 20 mg PO QHS #30 tablet 07/09/17 Insulin Glargine,Hum.rec.anlog [Lantus Insulin 100 Unit/mL] 55 unit SUBCUT QHS # 1 insuln.pen 07/09/17 Insulin Lispro [Humalog Kwikpen U-100] 100 unit SQ MEALS #1 insuln.pen 07/09/17 History of Present Illness Patient complains of: Altered mental status History of Present Illness: DILAN SANTANA is a 77 year old female who presents to hospital due to not feeling well. Pt is a poor historian. ER states that pt's daughter was present at time of ER physicians encounter who stated that pt has been more confused at home. Per documentation pt does not have history of diabetes. Per documentation pt is an alcoholic drink of choice is Brinda. Hospital Course Hospital Course: Patient is a 77-year-old female who presented to our facility with altered mental status after labs were obtained from the emergency department patient was found to be in DKA with glucose of 1500. Patient was placed on insulin drip and sent to the ICU. During patient's stay in hospital patient had behavior issues and therefore mental health consult was placed. Patient was also noted to be tremulous and therefore placed on Ativan for EtOH withdrawal. Patient was noted to have hyponatremia secondary to hyperglycemia however this resolved once blood glucose was controlled. Patient was noted to have hypernatremia demonstrated the severity of her dehydration. She was given D5W to help correct hypernatremia. Patient was evaluated by PT OT who recommended a rolling walker. Daughter insisted on patient going to rehab however patient stated that she did not want to go to rehab she wanted to go home. Patient was arranged for home PT OT with nursing for medication administration and nursing aid to assist with bathing. Physical Exam Vital Signs: Temp Pulse Resp BP Pulse Ox 98.7 F 81 18 139/77 H 98 07/09/17 07:51 07/09/17 07:51 07/09/17 07:51 07/09/17 07:51 07/09/17 07:51 Intake & Output 07/08/17 07/09/17 07/10/17 06:59 06:59 06:59 Intake Total 1235 Output Total 150 Balance 1085 Weight 93 kg General appearance: PRESENT: no acute distress, well-developed, well-nourished Head exam: PRESENT: atraumatic, normocephalic Eye exam: PRESENT: conjunctiva pink, EOMI. ABSENT: scleral icterus Ear exam: PRESENT: normal external ear exam Mouth exam: PRESENT: moist, tongue midline Neck exam: ABSENT: carotid bruit, JVD, lymphadenopathy, thyromegaly Respiratory exam: PRESENT: clear to auscultation bryant. ABSENT: rales, rhonchi, wheezes Cardiovascular exam: PRESENT: RRR. ABSENT: diastolic murmur, rubs, systolic murmur Pulses: PRESENT: normal dorsalis pedis pul Vascular exam: PRESENT: normal capillary refill GI/Abdominal exam: PRESENT: normal bowel sounds, soft. ABSENT: distended, guarding, mass, organolmegaly, rebound, tenderness Rectal exam: PRESENT: deferred Extremities exam: PRESENT: full ROM. ABSENT: calf tenderness, clubbing, pedal edema Neurological exam: PRESENT: alert, awake, oriented to person, oriented to place , oriented to time, oriented to situation, CN II-XII grossly intact. ABSENT: motor sensory deficit Psychiatric exam: PRESENT: appropriate affect, normal mood. ABSENT: homicidal ideation, suicidal ideation Skin exam: PRESENT: dry, intact, warm. ABSENT: cyanosis, rash Results Laboratory Results: 07/09/17 05:23 07/09/17 05:23 Sodium 143.9 Potassium 4.0 Chloride 110 H Carbon Dioxide 25 Anion Gap 9 BUN 21 H Creatinine 0.72 Est GFR ( Amer) > 60 Est GFR (Non-Af Amer) > 60 Glucose 94 Calcium 8.5 Impressions: Head CT 07/02/17 00:00 IMPRESSION: MILD CHRONIC CHANGES OF ATROPHY AND MICROVASCULAR ISCHEMIA. NO ACUTE PROCESS. Chest X-Ray 07/02/17 08:30 IMPRESSION: NO ACUTE RADIOGRAPHIC FINDING IN THE CHEST. Plan Time Spent: Greater than 30 Minutes
== END 2017-07-09 14:00 | disposition home health service (06) | DRG 637 ==
LOC: ER 08:20 → EH 11:33 → UNDOADMIN 11:33 → ICU 15:06 → EH 15:06 → 3S 07-04 02:50 → ICU 07-04 02:50 → UNDOADMIN 07-08 17:26 → ICU 07-08 17:26 → EH 07-08 17:26 → 3S 07-08 17:26 → UNDODISIN 07-09 14:00
PROVIDERS: ADMIT Emergency Medicine; ATTEND Emergency Medicine
DX: E13.10 Other specified diabetes mellitus with ketoacidosis without coma (principal); G93.41 Metabolic encephalopathy; N17.9 Acute kidney failure, unspecified; E87.0 Hyperosmolality and hypernatremia; F10.259 Alcohol dependence with alcohol-induced psychotic disorder, unspecified; F10.239 Alcohol dependence with withdrawal, unspecified; Z68.41 Body mass index [BMI] 40.0-44.9, adult; E86.0 Dehydration; I10 Essential (primary) hypertension; E66.9 Obesity, unspecified; Z79.899 Other long term (current) drug therapy
CPT/HCPCS: 36415; 36600; 70450; 71010; 80048; 80053; 80061; 80307; 81001; 82140; 82150; 82803; 82947; 82962; 83036; 83690; 83735; 84100; 84295; 84439; 84443; 84484; 85025; 85610; 87040; 87086; 93005; 93010; 93306; 99291; G0283-GP; J1650; J1815; J2060; J3411; J3475; J3480; J3490; J7030; J7060

== ENCOUNTER 2020-08-04 23:47 | Emergency (ER) | payer MEDICARE ==
[2020-08-05] MEDS ORDERED: LABETALOL HCL INJ 20 MG/4 ML DISP.SYRIN IV ONE (00:03)
[2020-08-05 00:42] LABS: ABSOLUTE MONOCYTES (AUTO) 1.1 10^3/uL (0.1-1.4); ABSOLUTE NEUT (AUTO) 9.3 10^3/uL (1.7-8.2); BASOPHILS % (AUTO) 0.4 % (0-2); EOSINOPHILS % (AUTO) 0.1 % (0-6); HEMATOCRIT 34.9 % (36.0-47.0); HEMOGLOBIN 12.9 g/dL (12.0-15.5); LYMPHOCYTES % (AUTO) 8.6 % (13-45); MEAN CORPUSCULAR HEMOGLOBIN 35.7 pg (27.0-33.4); MEAN CORPUSCULAR HGB CONC 36.9 g/dL (32.0-36.0); MEAN CORPUSCULAR VOLUME 97 fl (80-97); MONOCYTES % (AUTO) 9.9 % (3-13); PLATELET COUNT 255 10^3/uL (150-450); RED BLOOD COUNT 3.61 10^6/uL (3.72-5.28); RED CELL DISTRIBUTION WIDTH 13.1 % (11.5-14.0); TOTAL CELLS COUNTED % (AUTO) 100 %; WHITE BLOOD COUNT 11.4 10^3/uL (4.0-10.5)
--- NOTE | 2020-08-05 00:45 | RADIOLOGY REPORT (SQ) ---
EXAM DESCRIPTION: XR CHEST 1 VIEW COMPLETED DATE/TME: 08/05/2020 00:04 CLINICAL HISTORY: 80 years, Female, edema COMPARISON: None. NUMBER OF VIEWS: TECHNIQUE: LIMITATIONS: None. FINDINGS: No evidence of pulmonary infiltrate or pleural effusion. The heart and mediastinum are unremarkable. Pulmonary vascularity appears normal. There are atherosclerotic changes and tortuosity of the thoracic aorta. IMPRESSION: No acute finding. copyright 2010 [employer] All Rights Reserved
--- NOTE | 2020-08-05 00:47 | ER Document Report ---
ED General - General Chief Complaint: Altered Mental Status Stated Complaint: AMS Time Seen by Provider: 08/04/20 23:59 TRAVEL OUTSIDE OF THE [place] IN LAST 30 DAYS: No - HPI Notes: 80-year-old female presents with altered mental status. History is primarily obtained from EMS, patient is unable to participate currently. Per EMS patient has been altered for a couple of days, this was per the daughter who was at home. Patient has initially fallen at least 3 times today. Patient is known to have a history of high blood pressure and diabetes. Daughter told EMS that patient is in control of her own medicine, however there is concerned that she may not be taking it. She also reports daily alcohol use, described as a super, but unsure if she is drinking in the past couple days given that she has been altered. - Related Data Allergies/Adverse Reactions: codeine Allergy (Verified 07/02/17 17:30) Past Medical History - General Information source: Emergency Med Personnel - Social History Smoking Status: Unknown if Ever Smoked Family History: Other - Unable to assess given patient's condition - Past Medical History Cardiac Medical History: Reports: Hx Hypertension Endocrine Medical History: Reports: Hx Diabetes Mellitus Type 2 Renal/ Medical History: Denies: Hx Peritoneal Dialysis Review of Systems - Review of Systems -: Yes ROS unobtainable due to patient's medical condition Physical Exam - Vital signs Vitals: Resp 21 H 08/04/20 23:55 - General General appearance: Alert In distress: None - HEENT Head: Normocephalic, Atraumatic Extraocular movements intact: Yes Pupils: PERRL Neck: Other - Able to turn her head in both directions, does not appear to be in pain when doing this - Respiratory Respiratory status: No respiratory distress Breath sounds: Normal - Cardiovascular Rhythm: Regular Heart sounds: Normal auscultation Pulses: Bounding: Radial, Dorsalis pedis Normal capillary refill: Yes - Abdominal Inspection: Obese Tenderness: Nontender - Extremities General lower extremity: No: Edema - Neurological [place] Coma Scale Eye Opening: Spontaneous Giovanni Coma Scale Verbal: Confused Giovanni Coma Scale Motor: Localizes to Pain Giovanni Coma Scale Total: 13 Notes: No appreciable facial droop. Patient is alert and will make eye contact when speaking to her. She is able to say "ouch ouch ouch" while the blood pressure cuff was inflating and raised her right arm, she also was able to reach over with her left arm and attempt to pull off the cuff. She does not answer questions and intermittently follows commands. She moves both lower extremities. - Psychological Associated symptoms: Other - Unable to assess - Skin Skin Temperature: Warm Course - Re-evaluation Re-evalutation: 80-year-old female arrives via EMS from home with altered mental status for several days, apparently has had a couple falls today. On exam she is alert and will make eye contact, she has no appreciable facial droop, when she does speak it is clear and she moves all extremities. I do not find any hard focal neuro deficits. She is definitely displaying evidence of encephalopathy. Given that her blood pressure is greater than 200/100, I suspect she is in hypertensive encephalopathy however a intracranial hemorrhage is possible as well. We will start treatment with 20 mg labetalol, she may need infusion. Check CT head to rule out bleed, also check CT C-spine given the report of fall. Check labs, would suspect she has some degree of cardiac stress given her markedly elevated blood pressure. Does not appear to be overtly fluid overloaded. 08/05/20 00:53 CT head is concerning for left subdural, awaiting final read 08/05/20 01:02 Daughter has arrived and is at bedside. She states that around midnight she heard a thud. She went into the patient's room and found her sitting on her floor with her legs spread out. Patient was rubbing her head and had told daughter that she fell. Patient also said that she hit her head. Daughter states that on Sunday patient additionally had a fall in the bathtub, she hurt her left leg, unsure if she hit her head at that time. Daughter has noticed however for the past couple days she has been not acting her usual self. She does confirm the daily alcohol use. She denies any use of blood thinner. She states she is on a medication for cholesterol, blood pressure and diabetes. I updated her on the concern for SDH. Patient looks somewhat improved, she is now answering questions, when asked who her daughter was she did answer "my mother". 08/05/20 01:07 Received call from radiology, acute left subdural. Looks like she has some degenerative changes at C2/C3 however needs a little bit more time to read. 08/05/20 01:18 Patient has been accepted in transfer to the ED [facility], Dr. Arechiga excepting. CT C-spine is negative for fracture 08/05/20 01:22 CBC okay. Coags within normal limits. Hyponatremia present, have started normal saline infusion. Creatinine within normal limits. No elevation of LFTs. Troponin and BNP negative. Ethanol negative. 08/05/20 01:33 Went in to update daughter on transfer acceptance. We again rediscussed the SDH. Patient remains in no acute distress. - Vital Signs Vital signs: Temp Pulse Resp BP Pulse Ox 98.4 F 22 H 194/102 H 95 08/05/20 00:01 08/05/20 00:01 08/05/20 00:01 08/05/20 00:05 - Laboratory Result Diagrams: 08/05/20 00:30 08/05/20 00:30 Laboratory results interpreted by me: 08/05/20 08/05/20 08/05/20 00:29 00:30 00:30 WBC 11.4 H RBC 3.61 L Hct 34.9 L MCH 35.7 H MCHC 36.9 H Lymph % (Auto) 8.6 L Absolute Neuts (auto) 9.3 H Seg Neutrophils % 81.0 H Sodium 123.5 L Chloride 84 L BUN 25 H Glucose 151 H POC Glucose 150 H Total Bilirubin 1.7 H - Diagnostic Test Radiology reviewed: Image reviewed, Reports reviewed - EKG Interpretation by Me Additional EKG results interpreted by me: EKG is interpreted by me. Sinus rhythm, rate 83. QRS 104, QTc 456. No ST segment elevation or depressions. When compared to previous EKG, rate is slower and morphology is essentially the same. Critical Care Note - Critical Care Note Total time excluding time spent on procedures (mins): 50 - 50 minutes of critical care time related to management of subdural hemorrhage which is acutely life-threatening, markedly elevated high blood pressure requiring IV me dications, multiple patient reassessments and coordination of care/transfer with specialist. Discharge - Discharge Clinical Impression: Acute subdural hematoma, Hyponatremia, Encephalopathy Fall from standing Qualifiers: Encounter type: initial encounter Qualified Code(s): W19.XXXA - Unspecified fall, initial encounter [facility]
[2020-08-05 00:58] LABS: ALBUMIN 4.4 g/dL (3.5-5.0); ALKALINE PHOSPHATASE 90 U/L (38-126); ANION GAP 13 (5-19); ASPARTATE AMINO TRANSFERASE 20 U/L (14-36); BILIRUBIN,DIRECT 0.4 mg/dL (0.0-0.4); BILIRUBIN,TOTAL 1.7 mg/dL (0.2-1.3); BLOOD UREA NITROGEN 25 mg/dL (7-20); CALCIUM 9.3 mg/dL (8.4-10.2); CARBON DIOXIDE 27 mmol/L (22-30); CHLORIDE 84 mmol/L (98-107); GLUCOSE 151 mg/dL (75-110); POTASSIUM 3.8 mmol/L (3.6-5.0); TOTAL PROTEIN 7.5 g/dL (6.3-8.2)
[2020-08-05 00:59] LABS: ALCOHOL < 10 mg/dL (NONE DETECTED)
--- NOTE | 2020-08-05 01:07 | RADIOLOGY REPORT (SQ) ---
COMPLETED DATE/TME: 08/04/2020 23:59 EXAM: CT cervical spine without contrast. INDICATION: Trauma. Neck pain. TECHNIQUE: Contiguous axial CT images of the cervical spine. Intravenous contrast: Absent. Reformats: MPRs created and utilized. DLP 436 mGy-cm. This exam was performed according to our departmental dose-optimization program, which includes automated exposure control, adjustment of the mA and/or kV according to patient size and/or use of iterative reconstruction technique. COMPARISON: None. FINDINGS: Alignment: Preserved. Fracture: No acute fracture or subluxation. Odontoid process: Intact. Prevertebral soft tissues: No edema. Spondylosis: Multilevel spondylosis, worst at C5-C6 with disc space narrowing, endplate sclerosis, vacuum disc phenomenon and marginal osteophytes. There is multilevel facet arthropathy there is moderate right and moderate to severe left neural foraminal narrowing at this level. Other: None. IMPRESSION: 1. No CT evidence of acute osseous injury of the cervical spine.
[2020-08-05 01:08] LABS: NT PRO BNP 378 pg/mL (<450)
[2020-08-05 01:11] LABS: INTERNATIONAL RATION (INR) 0.96
[2020-08-05 01:12] LABS: PARTIAL THROMBOPLASTIN TIME 30.6 SEC (23.5-35.8)
--- NOTE | 2020-08-05 01:12 | RADIOLOGY REPORT (SQ) ---
INDICATION: marked HTN, AMS, eval bleed. COMPARISON: July 02, 2017 CORRELATION: None TECHNIQUE: Noncontrast spiral axial CT images were obtained from the skull base to vertex. This exam was performed according to our departmental dose-optimization program, which includes automated exposure control, adjustment of the mA and/or kV according to patient size and/or use of iterative reconstruction techniques. FINDINGS: Acute subdural hemorrhage is identified. This is seen left parafalcine with maximum thickness of 1.4 cm. There is also a component of this hemorrhage laterally surrounding the left frontal, temporal, and parietal lobes. This has maximum thickness of no more than 6 mm. There is mild regional mass effect with sulcal effacement. No evidence of midline shift. The subdural hemorrhage also tracks minimally along the tentorium, left lateral. Vunog-white differentiation is normal. There is no evidence of acute large territory infarct. Age-related involutional changes are identified. Presumed old small vessel ischemic changes are seen predominantly in a periventricular distribution.. The visualized paranasal sinuses are grossly clear. The orbits and eyeballs are unremarkable. The mastoid air cells are clear. Skull base and calvarium appear intact. IMPRESSION: Acute subdural hematoma is identified left parafalcine, left lateral overlying the frontal temporal and parietal lobes and tracking minimally along the left tentorium. Mild regional mass effect with sulcal effacement.. These findings were discussed personally by phone with, and an understanding was acknowledged by, Dr. JASE CHAKRABORTY on 08/05/2020 12:06 AM CDT.
[2020-08-05 01:15] LABS: TROPONIN I < 0.012 ng/mL
[2020-08-05] MEDS ORDERED: NORMAL SALINE 1000 ML 1,000 ML IV ONE (01:20)
[2020-08-05 01:42] VITALS: BP 206/98
--- NOTE | 2020-08-05 18:01 | EKG REPORT ---
SEVERITY:- BORDERLINE ECG - SINUS RHYTHM BORDERLINE INFERIOR Q WAVES : Confirmed by: Reinaldo Potter MD 05-Aug-2020 18:00:11
== END 2020-08-05 01:45 | disposition short-term general hospital (02) ==
LOC: ER 23:47
DX: S06.5X9A Traumatic subdural hemorrhage with loss of consciousness of unspecified duration, initial encounter (principal); W19.XXXA Unspecified fall, initial encounter; I10 Essential (primary) hypertension; E87.1 Hypo-osmolality and hyponatremia; G93.40 Encephalopathy, unspecified; E11.9 Type 2 diabetes mellitus without complications; Z88.6 Allergy status to analgesic agent; Z88.5 Allergy status to narcotic agent
CPT/HCPCS: 93005; 99285; 96361 ×2; 96374; 36415; 82962; 80307; 85025; 85610; 85730; 80053; 84484; 83880; 71045; 70450; 72125; 93010; J3490; J7030